=== PATIENT | female | born 1985 | race Caucasian/White ===

== ENCOUNTER 2023-05-31 22:31 | Inpatient (IN) | payer OTHER, SELFPAY ==
[2023-05-31 18:24] VITALS: BP 136/65
[2023-05-31 18:59] LABS: COVID-19 Antigen Negative (Negative)
[2023-05-31] MEDS: TYLENOL 500 MG PO (20:15)
[2023-05-31] MEDS: NSS 500 IV (20:15)
[2023-05-31 20:19] VITALS: BMI 26.8
[2023-05-31 20:36] LABS: Urine Albumin Negative (Neg - Trace); Urine Bilirubin Negative (Negative); Urine Character Clear (Clear); Urine Color Straw; Urine Glucose Negative (Negative); Urine Ketone Negative (Negative); Urine Leukocyte Negative (Negative); Urine Nitrite Negative (Negative); Urine Occult Blood Negative (Negative); Urine Urobilinogen Negative (Neg - 1+)
[2023-05-31 20:36] LABS: % Eosinophils 1.3 % (0-6); % Lymphocytes 94.9 % (20.5-51.1); % Monocytes 2.5 % (1.7-9.3); % Neutrophils 1.3 % (42.2-75.2); Absolute Lymphocytes 0.8 10^3/uL (1.2-3.4); Hemoglobin 8.3 g/dL (12.0-16.0); Mean Corp Hgb Conc. 36.1 g/dL (33.0-37.0); Mean Corpuscular Hgb 30.4 pg (27.0-31.0); Mean Corpuscular Volume 84.2 fL (81.0-99.0); Mean Platelet Volume 10.1 fL (7.4-10.4); Nucleated Red Blood Cells % 0 %; Platelet Count 104 10^3/uL (130-400); Red Blood Cell Count 2.73 10^6/uL (4.20-5.40); Red Cell Dist. Width 16.9 % (11.5-14.5)
[2023-05-31 20:44] LABS: Lactic Acid 0.8 mmol/L (0.7-2.0)
[2023-05-31 20:48] LABS: ALT (SGPT) 45 U/L (0-35); AST (SGOT) 42 U/L (14-36); Albumin 4.2 g/dl (3.5-5.0); Alkaline Phosphatase 68 U/L (38-126); Blood Urea Nitrogen 12 mg/dl (7-17); Calcium 9.1 mg/dl (8.4-10.2); Carbon Dioxide 25 mmol/L (22-30); Chloride 103 mmol/L (98-107); Estimated Creatinine Clearance 94 ml/min; Glucose 103 mg/dl (70-99); Potassium 3.8 mmol/L (3.5-5.1); Sodium 133 mmol/L (135-145); Total Protein 6.8 g/dl (6.3-8.2); eGFR > 60.00
[2023-05-31 21:00] LABS: White Blood Cell Count 0.8 10^3/uL (4.8-10.8)
[2023-05-31 21:11] VITALS: BP 107/61
--- NOTE | 2023-05-31 22:08 | HPS.HSE ---
Family Physician
-
Family Physician: Ashely Howard
Chief Complaint
-
fever
History of Present Illness
38-year-old female past medical history of stage III breast cancer on chemotherapy presenting with bodyaches for 1 week and fever of 101 today. She last received chemotherapy 1 week ago. She was previously on a different chemotherapy and last week
was her first dose of this new chemotherapy. During the chemotherapy session she developed anaphylaxis with nausea, mouth swelling.
She was neutropenic on Saturday with ANC of 1.1 and got Neulasta.
Today she developed fevers and chills and diffuse body pains described as bone pains. She denies runny nose. Denies sore throat, cough, shortness of breath, chest pain, nausea or vomiting, diarrhea, urinary symptoms.
Medical History
Past Medical History
Past Medical History: Reports Other (stage III breast cancer on chemotherapy)
Past Surgical History: Reports
Social History
Tobacco: Non-smoker
Alcohol: Occasional
Drug: None
Family History
Family History: Not pertinent
Allergies / Home Medications
Allergies reflects when Allergies were last updated in [facility].
Home Medications with original date entered in [facility]
Allergy/Medication List:
Allergies
Allergy/AdvReac Type Severity Reaction Status Date / Time
amoxicillin Allergy Hives Verified 05/31/23 18:31
cephalexin Allergy Hives Verified 05/31/23 18:31
Cephalosporins Allergy Unknown Verified 05/31/23 18:31
paclitaxel [From Taxol] Allergy Anaphylaxis Verified 05/31/23 18:35
Penicillins Allergy Hives Verified 05/31/23 18:31
prednisolone Allergy Hives Verified 05/31/23 18:31
tree fruit Allergy Tongue Uncoded 05/31/23 18:31
Swelling
Home Medications
sertraline 25 mg tablet 25 mg PO DAILY Neurological Condition 09/29/21
acetaminophen 325 mg tablet (Tylenol) 325 mg PO TIDPRN PRN mild pain 05/31/23
dexamethasone 4 mg tablet 4 mg PO UD 05/31/23
famotidine 20 mg tablet (Pepcid) 20 mg PO DAILYPRN PRN gerd 05/31/23
loratadine 10 mg tablet (Claritin) 10 mg PO DAILY 05/31/23
lorazepam 0.5 mg tablet 0.5 mg PO TIDPRN PRN anxiety 05/31/23
ondansetron HCl 8 mg tablet 8 mg PO [id number] PRN nasuea 05/31/23
prochlorperazine maleate 10 mg tablet 10 mg PO BIDPRN PRN nasuea 05/31/23
Review of Systems
-
History Source: Patient
A 12 point ROS was completed and negative except as noted: Yes
Constitutional: Reports See HPI
EENT: Reports No Symptoms
Respiratory: Reports No Symptoms
Cardiac: Reports No Symptoms
Abdomen/GI: Reports No Symptoms
: Reports No Symptoms
Musculoskeletal: Reports See HPI
Skin: Reports No Symptoms
Neurological: Reports No Symptoms
Endocrine: Reports No Symptoms
Hematologic/Lymphatic: Reports No Symptoms
Psych: Reports No Symptoms
Physical Exam
Vital Signs
Vital Signs
Temp Pulse Resp BP Pulse Ox
100.1 F 111 20 107/61 92
05/31/23 18:24 05/31/23 21:11 05/31/23 21:11 05/31/23 21:11 05/31/23 21:11
Physical Exam
General: Well Developed, Well Nourished and No Apparent Distress
HEENT: NormoCephalic, Moist mucous membranes and Atraumatic
Respiratory: Clear
Cardiac: S1/S2 and Regular Rhythm; No Murmur or Rub
GI: Soft, Non Tender, Non Distended and Normal Bowel Sounds; No Organomegaly
Rectal: Deferred by Provider
Musculoskeletal: No Clubbing, No Cyanosis and No Edema
Skin: No Rash
Neuro: Nonfocal/grossly intact
Laboratory Results
-
05/31/23 20:14
05/31/23 20:14
Laboratory Results
Lactic Acid 0.8 mmol/L (0.7-2.0) 05/31/23 20:15
Total Bilirubin 2.0 mg/dl (0.2-1.3) H 05/31/23 20:14
AST 42 U/L (14-36) H 05/31/23 20:14
ALT 45 U/L (0-35) H 05/31/23 20:14
Alkaline Phosphatase 68 U/L (38-126) 05/31/23 20:14
Data Reviewed
-
Lab Data: Labs Reviewed by me
Old Records: Reviewed
Impression/Plan
-
IMPRESSION:
PLAN:
# Neutropenic sepsis (fever, tachycardia, leukopenia) unclear source
-No obvious source of infection
-ANC of 0
-Urinalysis negative
-COVID negative, influenza negative
-Check blood cultures
-Check chest x-ray
-IV fluids
-Vancomycin/meropenem given allergies
# Pancytopenia likely secondary to chemotherapy
-ANC 0
-Hemoglobin of 8.3 from 11
-Platelet count of 104
-oncology consulted
History of breast cancer on chemotherapy
-Continue dexamethasone
-Continue antinausea medications
Anxiety/depression
-Continue sertraline, Ativan
Full code
DVT prophylaxis�SCDs
Regular diet
[2023-05-31] MEDS: MERREM 1000 MG IV (22:22)
--- NOTE | 2023-05-31 22:48 | ED.GENMED ---
History of Present Illness
General
Chief Complaint: Fever
Source: patient
Exam Limitations: none
Time Seen by Provider: 05/31/23 18:43
Nursing documentation reviewed up to this point in time: agreed with
Travel History
Have you had any contact with someone who has COVID-19?: No
Do you have any symptoms of coronavirus? Fever > 100 degrees, chills, cough, shortness of breath, sore throat, loss of taste or smell, muscle aches, or headache?: Yes
Symptoms:: fever
History of Present Illness
History of Present Illness:
38 y/o F with h/o breast CA stage III treated by cancer center, on new chemotherapy, 1 week ago 1st dose
on 05/27 her ANC was 1.1 and she was given neulasta
she was achy the rest of the week but then today spiked temp 101. 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 vazquez who recommended her coming in
she has no other symptoms - denies headache, neck pain, sore throat, nasal congestion, cough, vomiting, diarrhea, abdominal pain, cp, sob, rash.
her son is in school and had a fever/diarrhea this week.
Past History
Past History
ED Past Medical History: Cancer (breast)
ED Past Surgical History:
Social History
Tobacco: Non-smoker
Alcohol: None
Drug: None
Personal:
Living: with family
Employment: Not employed
Family History
Family History: Other (Noncontributory)
Review of Systems
Review of Systems
Allergies reviewed?: Yes
All Other Systems: Not applicable
Phy Exam
Physical Exam
Physical Exam:
GENERAL: Alert , in no apparent distress
EYE: pupils equal and reactive
NECK: Supple
ENT: b/l TM s clear, nonerythematous pharynx but no tonsillar hypertrophy or exudates
CARDIAC: low tachycardia, no obvious murmur, no edema\\
chest wall: port
LUNGS: Clear breath sounds bilaterally, no acute respiratory distress, no wheezes/rales/rhonchi, occ cough
ABDOMEN: Soft, without focal tenderness, no r/g, no cvat, normal bowel sounds
NEUROLOGICAL: Alert and oriented, no focal neuro deficits
SKIN: Warm and dry, skin intact. pale
MUSCULOSKELETAL: No edema, well perfused.
PSYCH: Normal and appropriate interaction.
Course
Orders/Labs/Results
Orders:
Orders
05/31/23 18:36
COVID-19 Antigen Urgent
Source: Nasal Swab
INF RAPID [Influenza A+B Rapid Molecular] Urgent
SHERWIN Source: Nasal Swab
Specimen Description:
05/31/23 19:19
0.9% Sodium Chloride 500 ml [Nss] 500 ml IV BOLUS
Acetaminophen [Tylenol] 500 mg PO NOW STA
05/31/23 20:14
Complete Blood Count/With Diff Urgent
Comprehensive Metabolic Panel Urgent
Blood Culture Urgent
SHERWIN Source: Blood/Venous
Specimen Description:
Comment: collect from SQ port
05/31/23 20:15
Lactic Acid Urgent
Urinalysis Reflex To Culture Urgent
Date Specimen was Collected: 05/31/23
Time Specimen was Collected: 19:27
05/31/23 20:26
Blood Culture Urgent
SHERWIN Source: Blood/Venous
Specimen Description:
05/31/23 21:38
CR Chest - 2 Views Urgent
Comment:
Reason For Exam: neutropenic fever
05/31/23 21:39
Meropenem [Merrem] 1,000 mg IV NOW STA
05/31/23 22:02
Admit/Transfer Patient As Directed
Co-Sign Provider:
Level of Care: Inpatient admission
Assign to:: Telemetry
Physician / Group: veldanda
Diagnosis: neutropenic sepsis
Reason for Telemetry: Arrhythmia
Date to Stop Telemetry: 06/03/23
Time to Stop Telemetry: 11:00
Reason for Hospitalization: neutropenic sepsis
Expected length of stay greater than two midnights?: Yes
ELOS- Estimated Length of Stay in days: 2
I certify the patient meets the requirements for IP care: Yes
05/31/23 22:03
Code Status As Directed
Resuscitation Status: Full Code
05/31/23 22:21
Sterile Water [Sterile Water For Injection] 20 ml .ROUTE .STK-MED
05/31/23 22:30
Vancomycin [Vancocin] 2,000 mg 0.9% Sodium Chloride 500 ml [Nss] 500 ml IV ONCE
06/03/23 11:00
DC Protocol for Telemetry ONCE
Abnormal Lab Results
05/31/23
20:14
WBC 0.8 L* 10^3/uL
(4.8-10.8)
RBC 2.73 L 10^6/uL
(4.20-5.40)
Hgb 8.3 L g/dL
(12.0-16.0)
Hct 23.0 L %
(37.0-47.0)
RDW 16.9 H %
(11.5-14.5)
Plt Count 104 L 10^3/uL
(130-400)
Absolute Neuts (auto) 0.0 L* 10^3/uL
(1.4-6.5)
Absolute Lymphs (auto) 0.8 L 10^3/uL
(1.2-3.4)
Absolute Monos (auto) 0.0 L 10^3/uL
(0.1-0.6)
Neutrophils % 1.3 L %
(42.2-75.2)
Lymphocytes % 94.9 H %
(20.5-51.1)
Sodium 133 L mmol/L
(135-145)
Glucose 103 H mg/dl
(70-99)
Total Bilirubin 2.0 H mg/dl
(0.2-1.3)
AST 42 H U/L
(14-36)
ALT 45 H U/L
(0-35)
05/31/23 20:14
05/31/23 20:14
Vital Signs
Initial and Last Documented VS:
Initial Vital Signs
Temp Pulse Resp BP Pulse Ox
100.1 F 120 20 136/65 97
05/31/23 18:24 05/31/23 18:24 05/31/23 18:24 05/31/23 18:24 05/31/23 18:24
Last Documented Vital Signs
Temp Pulse Resp BP Pulse Ox
100.1 F 115 22 107/61 98
05/31/23 18:24 05/31/23 22:31 05/31/23 22:31 05/31/23 21:11 05/31/23 22:31
MDM/Problems Addressed
Differential Diagnosis Includes:
neutropenic fever, viral syndrome, uti, penumonia, bacteremia, flu, covid
MDM/Problems Addressed:
38-year-old female with a history of stage III breast cancer currently receiving chemotherapy, new regimen started last week where she got an infusion through her port. The following 3 days later she had a ANC of 1.1 and was given a dose of
Neulasta. Patient also got a banana bag and says that during the week she has been feeling just generalized bodyaches, in particular lower back pain. Today she spiked a fever of 101 and treated it with Tylenol 500 mg and then called the [facility] and spoke with Dr. Vazquez and was instructed to come to the hospital. Patient says that other than feeling achy she has no specific complaints. Her son had a fever and diarrhea illness this week. They have 2 children and they both
are in daycare and are usually ill. Patient on arrival had a low-grade temperature of 100.1, was mildly tachycardic. She is overall pale in color but did not look severely dehydrated. Her heart and lungs were clear. She had no signs of infection
otherwise. Patient was tested for flu and COVID which were negative. Unfortunately her white count is 0.8 and her ANC is 0. I spoke with Dr. Lucero and he recommended empiric antibiotics. She was pancultured including blood culture from her port
and she will be admitted. She is allergic to penicillins and cephalosporins so I discussed the case with ED attending who recommended meropenem and vancomycin.
*Critical Care Note
Total Time (30-74mins, 75-104mins- exclusive of procedures): Not Applicable
ED Attending Note
-
Portions of this chart may have been created with voice recognition software.� Occasional wrong word or��sound alike� substitutions may have occurred due to the inherent limitations of voice recognition software.
Discharge Plan
Departure
Patient Disposition: Admit
Date of Disposition: 05/31/23
Time of Disposition: 21:38
Admit to: Med/Surg
Presentation/result/management discussed w/ accepting MD/DO: Hospitalist
Patient with high blood pressure during this ER visit?: No
Condition: Critical
Covid-19: Negative COVID-19
Discharge Problem:
Neutropenia with fever
Interventions
Interventions:
*Risk Screen - Suicide Last Done: 05/31/23 20:45
*General Assessment Last Done: 05/31/23 20:45
*Neglect/Abuse Screening Last Done: 05/31/23 20:45
ED- Fall Risk Assessment Last Done: 05/31/23 20:00
*ED COVID-19 Vaccine History Last Done: 05/31/23 18:24
ED- Neurological Assessment Last Done: 05/31/23 20:00
ED-Skin Assessment Last Done: 05/31/23 20:00
[2023-05-31] MEDS: VANCOCIN 540 MG IV (22:49)
[2023-05-31 23:57] VITALS: BP 123/54; BMI 27.3
[2023-06-01] MEDS: TYLENOL 325 MG PO (00:43)
[2023-06-01] MEDS: NSS 1000 IV (00:58)
--- NOTE | 2023-06-01 01:48 | PTCARENOTE ---
Pt arrived to 3W via stretcher from ED. Pt able to ambulate into room. AOx3. VSS. Assessment as documented. Pt oriented to unit. Call brunner within reach. Will continue ongoing plan of care.
[2023-06-01 03:30] VITALS: BP 102/53
[2023-06-01] MEDS: TYLENOL 650 MG PO ×2 (03:50→19:52)
[2023-06-01 04:57] LABS: % Lymphocytes 93.9 % (20.5-51.1); % Neutrophils 4.1 % (42.2-75.2); Absolute Lymphocytes 0.5 10^3/uL (1.2-3.4); Hemoglobin 7.4 g/dL (12.0-16.0); Mean Corp Hgb Conc. 35.7 g/dL (33.0-37.0); Mean Corpuscular Hgb 30.5 pg (27.0-31.0); Mean Corpuscular Volume 85.2 fL (81.0-99.0); Mean Platelet Volume 9.9 fL (7.4-10.4); Nucleated Red Blood Cells % 0 %; Platelet Count 90 10^3/uL (130-400); Red Blood Cell Count 2.43 10^6/uL (4.20-5.40); Red Cell Dist. Width 16.7 % (11.5-14.5)
[2023-06-01 05:08] LABS: Hematocrit 20.7 % (37.0-47.0); White Blood Cell Count 0.5 10^3/uL (4.8-10.8)
[2023-06-01 05:21] LABS: ALT (SGPT) 37 U/L (0-35); AST (SGOT) 29 U/L (14-36); Albumin 3.4 g/dl (3.5-5.0); Alkaline Phosphatase 63 U/L (38-126); Blood Urea Nitrogen 10 mg/dl (7-17); Calcium 8.4 mg/dl (8.4-10.2); Carbon Dioxide 22 mmol/L (22-30); Chloride 106 mmol/L (98-107); Estimated Creatinine Clearance 106 ml/min; Glucose 119 mg/dl (70-99); Potassium 3.9 mmol/L (3.5-5.1); Sodium 133 mmol/L (135-145); Total Bilirubin 2.1 mg/dl (0.2-1.3); Total Protein 5.7 g/dl (6.3-8.2); eGFR > 60.00
[2023-06-01] MEDS: STERILE WATER FOR INJECTION 20 ML IV ×3 (05:43→22:02)
[2023-06-01] MEDS: MERREM 1000 MG IV ×3 (05:43→22:02)
[2023-06-01 07:00] VITALS: BP 110/67
[2023-06-01] MEDS: ZOLOFT 25 MG PO (08:12)
[2023-06-01] MEDS: CLARITIN 10 MG PO (08:12)
--- NOTE | 2023-06-01 08:55 | PHA.VAN.IN ---
Assessment
- Assessment
Renal Function: Unknown baseline
Maximum Temperature: 100.6
Minimum Temperature: 98.6
Concomitant Antimicrobials: Meropenem
AUC Dosing Plan
- Dosing Variables
Dosing Weight (kg): 72.2
Dosing CrCl (ml/min): 106
Vd coefficient (L/kg): 0.7
- Empiric Dosing
Initial / Loading Dose: Vanc 2000mg 2/2 at 2249
Maintenance Regimen: Vanc 1000mg IV q12H
Estimated AUC (mcg*h/mL): 448
Estimated Peak (mcg*h/mL): 29.5
Estimated Trough (mcg/ml): 10.7
Estimated Half Life (H): 7.5
- Monitoring
No levels ordered at this time: Consider levels after 2/4 1800 dose.
Pharmacokinetics Vancomycin I
- -
Patient Age: 38
Patient Sex: Female
Vancomycin Day #: 1
Indication: Neutropenic Fever
Requesting Provider: Michael
Pertinent Antimicrobial Allergies:
PCN = hives; cephalexin = hives
Height / Weight:
Height 5 ft 4 in
Actual Weight 72.15 kg
IBW in k.7
Adjusted BW in k.7
Pertinent Past Medical History: Stage III breast cancer
- Vital Signs / Lab Results
Temp Pulse Resp BP Pulse Ox
98.6 F 96 18 110/67 98
06/01/23 07:00 06/01/23 07:00 06/01/23 07:00 06/01/23 07:00 06/01/23 07:00
Lab Results - Hematology
05/31/23 06/01/23
20:14 04:26
WBC 0.8 L* 0.5 L*
Lab Results - Chemistry
05/31/23 06/01/23
20:14 04:26
BUN 12 10
Creatinine 0.7 0.7
Estimated Creat Clear 94 106
Albumin 4.2 3.4 L
05/31/23
20:15
Lactic Acid 0.8
Lab Results - Urine
05/31/23
20:15
Urine Nitrite (Reflex) Negative
Leukocyte Esterase Rfl Negative
Microbiology Results
05/31/23 18:36 Influenza Types A & B (ANAND) - Final
Nasal Swab Negative for Influenza A & B, NAAT
Negative results must be combined with clinical observations
and patient history.
Nucleic Acid Amplification test (NAAT)performed on the
[employer] platform.
[2023-06-01] MEDS: VANCOCIN 200 IV ×2 (09:44→18:11)
[2023-06-01 10:29] LABS: Hematocrit 22.2 % (37.0-47.0); Hemoglobin 7.8 g/dL (12.0-16.0)
--- NOTE | 2023-06-01 10:45 | CON.ONC ---
Impression
Impression
Neutropenic fever likely with prolonged neutropenia
Triple negative breast carcinoma stage III
HTN
Plan
Plan
Broad-spectrum antibiotic support
Neutropenic precautions
Monitor CBC with differential post growth factor support
Anticipate ID insights
Will follow
Patient History
History of Present Illness
38-year-old female past medical history of stage III triple negative breast cancer Systemic therapy with carboplatin/Taxol/Adriamycin/Cytoxan in sequential order. She as treated last Saturday an ANC of 1100 and received growth factor support. She
called the office last evening with an episode of chills and temperature of 101. She Presented to the emergency room at my recommendation. Has now been admitted to the hospital with neutropenic fever ANC 0 on broad-spectrum antibiotics with
vancomycin/meropenum. � Denies sore throat, cough, shortness of breath, chest pain, nausea or vomiting, diarrhea Urinary symptoms.�
Past-Medical/Surgical History
Past Medical History
Stage III breast cancer on Neoadjuvant chemotherapy With good clinical response
Past Surgical History:
Social History
Tobacco: Non-smoker
Alcohol: Occasional
Drug: None
Family History
Family History: Not pertinent
Patient Medication
Medication Instructions Recorded Confirmed Last Taken Type
sertraline 25 mg tablet 25 mg PO DAILY Neurological 09/29/21 05/31/23 05/30/23 History
Condition
acetaminophen 325 mg tablet 325 mg PO TIDPRN PRN mild pain 05/31/23 05/31/23 05/31/23 History
(Tylenol)
dexamethasone 4 mg tablet 4 mg PO UD 05/31/23 05/31/23 Unknown History
famotidine 20 mg tablet (Pepcid) 20 mg PO DAILYPRN PRN gerd 05/31/23 05/31/23 05/31/23 History
loratadine 10 mg tablet (Claritin) 10 mg PO DAILY 05/31/23 05/31/23 05/30/23 History
lorazepam 0.5 mg tablet 0.5 mg PO TIDPRN PRN anxiety 05/31/23 05/31/23 Unknown History
ondansetron HCl 8 mg tablet 8 mg PO [id number] PRN nasuea 05/31/23 05/31/23 Unknown History
prochlorperazine maleate 10 mg 10 mg PO BIDPRN PRN nasuea 05/31/23 05/31/23 Unknown History
tablet
Active Medications
Generic Name Dose Route Start Last Admin
Trade Name Freq PRN Reason Stop Dose Admin
Acetaminophen 650 mg 06/01/23 03:38 06/01/23 03:50
Acetaminophen 325 Mg Tablet PO 06/29/23 03:36 650 mg
Q4HPRN PRN Administration
mild pain/arreguin/ TEMP>100.5
Famotidine 20 mg 05/31/23 23:43
Famotidine 20 Mg Tablet PO 06/28/23 23:42
DAILYPRN PRN
gerd
Sodium Chloride 1,000 mls @ 100 mls/hr 05/31/23 23:43 06/01/23 00:58
Nss IV 1,000 mls
.Q10H CHUCK Administration
Vancomycin HCl 1 gram in 200 mls @ 200 mls/hr 06/01/23 18:00
Vancocin IV
Q12H CHUCK
Protocol
Loratadine 10 mg 06/01/23 08:00 06/01/23 08:12
Loratadine 10 Mg Tablet PO 06/29/23 07:59 10 mg
DAILY CHUCK Administration
Lorazepam 0.5 mg 05/31/23 23:43
Lorazepam 0.5 Mg Tablet PO 06/28/23 23:42
TIDPRN PRN
anxiety
Meropenem 1,000 mg 06/01/23 06:00 06/01/23 05:43
Meropenem 1,000 Mg/20 Ml Vial IV 1,000 mg
Q8H CHUCK Administration
Ondansetron HCl 4 mg 05/31/23 23:43
Ondansetron 4 Mg/2 Ml Vial IV 06/28/23 23:42
Q6HPRN PRN
nausea and vomiting
Ondansetron HCl 8 mg 05/31/23 23:43
Ondansetron 4 Mg Tablet PO
[id number] PRN
nasuea
Prochlorperazine Maleate 10 mg 05/31/23 23:43
Prochlorperazine 10 Mg Tablet PO 06/28/23 23:42
BIDPRN PRN
nasuea
Sertraline HCl 25 mg 06/01/23 08:00 06/01/23 08:12
Sertraline 25 Mg Tablet PO 06/29/23 07:59 25 mg
DAILY CHUCK Administration
Sodium Chloride 0 flush 05/31/23 23:00
Sodium Chloride 0.9% (Flush) Syringe IV 06/28/23 22:59
PER PROTOCOL CHUCK
Sterile Water 20 ml 06/01/23 06:00 06/01/23 05:43
Sterile Water For Injection 20 Ml Vial IV 06/29/23 05:59 20 ml
Q8H CHUCK Administration
Review of Systems
-
Negative for 12 point review of systems other though than those symptoms mentioned in HPI.
Physical Exam
-
Physical Exam
General: Well Developed, Well Nourished and No Apparent Distress
HEENT: NormoCephalic, Moist mucous membranes and Atraumatic
Respiratory: Clear
Cardiac: S1/S2 and Regular Rhythm; No Murmur or Rub
GI: Soft, Non Tender, Non Distended and Normal Bowel Sounds; No Organomegaly
Musculoskeletal: No Clubbing, No Cyanosis and No Edema
Skin: No Rash
Neuro: Nonfocal/grossly intact
Labs
Lab Results
WBC 0.5 10^3/uL (4.8-10.8) L* 06/01/23 04:26
RBC 2.43 10^6/uL (4.20-5.40) L 06/01/23 04:26
Hgb 7.8 g/dL (12.0-16.0) L 06/01/23 10:14
Hct 22.2 % (37.0-47.0) L 06/01/23 10:14
MCV 85.2 fL (81.0-99.0) 06/01/23 04:26
MCH 30.5 pg (27.0-31.0) 06/01/23 04:
MCHC 35.7 g/dL (33.0-37.0) 06/01/23 04:
RDW 16.7 % (11.5-14.5) H 06/01/23 04:26
Plt Count 90 10^3/uL (130-400) L 06/01/23 04:26
MPV 9.9 fL (7.4-10.4) 06/01/23 04:26
Abs Immat Gran (auto) 0.0 10^3/uL (0-0.05) 05/31/23 20:14
Absolute Neuts (auto) 0.0 10^3/uL (1.4-6.5) L* 05/31/23 20:14
Absolute Lymphs (auto) 0.8 10^3/uL (1.2-3.4) L 05/31/23 20:14
Absolute Monos (auto) 0.0 10^3/uL (0.1-0.6) L 05/31/23 20:14
Absolute Eos (auto) 0.0 10^3/uL (0-0.7) 05/31/23 20:14
Absolute Basos (auto) 0.0 10^3/uL (0-0.2) 05/31/23 20:14
Immature Gran % 0.0 % (0-0.5) 05/31/23 20:14
Neutrophils % 1.3 % (42.2-75.2) L 05/31/23 20:14
Lymphocytes % 94.9 % (20.5-51.1) H 05/31/23 20:14
Monocytes % 2.5 % (1.7-9.3) 05/31/23 20:14
Eosinophils % 1.3 % (0-6) 05/31/23 20:14
Basophils % 0.0 % (0-2) 05/31/23 20:14
Creatinine 0.7 mg/dL (0.6-1.0) 06/01/23 04:26
Vital Signs
Vital Signs
Temp Pulse Resp BP Pulse Ox
98.6 F 96 18 110/67 98
06/01/23 07:00 06/01/23 07:00 06/01/23 07:00 06/01/23 07:00 06/01/23 07:00
[2023-06-01 11:00] VITALS: BP 110/70
[2023-06-01] MEDS: ZOFRAN 4 MG IV (11:05)
--- NOTE | 2023-06-01 11:28 | W.PN.HOSP.TC ---
Addendum entered and electronically signed by Bill Eisenberg MD 06/01/23 11:41:
No Decadron. Patient was only taking since she had a reaction
Original Note:
Today's Communication/Plan
-
Monitor vital signs and see plan
Continue with abx
ID to evaluate
Follow fever curve
Blood culture pending
Assessment / Plan
Assessment / Plan
General: Well Developed, Well Nourished and No Apparent Distress
HEENT: NormoCephalic, Moist mucous membranes and Atraumatic
Respiratory: Clear
Cardiac: S1/S2 and Regular Rhythm; No Murmur or Rub
GI: Soft, Non Tender, Non Distended and Normal Bowel Sounds; No Organomegaly
Rectal: Deferred by Provider
Musculoskeletal: No Clubbing, No Cyanosis and No Edema
Skin: No Rash
Neuro: Nonfocal/grossly intact
Neutropenic sepsis (fever, tachycardia, leukopenia) unclear source
-No obvious source of infection
-ANC of 0; received Neulasta on Saturday 05/27
-Urinalysis negative,CXR without PNA; covid,flu neg. Bcx pending
-DC further IVF
-Vancomycin/meropenem given allergies
# Pancytopenia likely secondary to chemotherapy
-ANC 0
-monitor hgb and plts
-oncology following; follows up with Dr. Jung outpatient
History of breast cancer on chemotherapy
-Continue dexamethasone
-Continue antinausea medications
Anxiety/depression
-Continue sertraline, Ativan
Full code
DVT prophylaxis�SCDs
Anticipated Discharge: 24 - 48 hours
Subjective/Interval History
-
Date of Service: June 01, 2023
feeling little better
Objective Data
-
Labs:
Laboratory Results
06/01/23 06/01/23
04:26 10:14
WBC 0.5 L*
Hgb 7.4 L 7.8 L
Hct 20.7 L* 22.2 L
Plt Count 90 L
Sodium 133 L
Potassium 3.9
Chloride 106
Carbon Dioxide 22
BUN 10
Creatinine 0.7
Glucose 119 H
Calcium 8.4
Total Bilirubin 2.1 H
AST 29
ALT 37 H
Alkaline Phosphatase 63
Vital Signs:
Vital Signs
Temp Pulse Resp BP Pulse Ox
99.3 F 107 16 110/70 99
06/01/23 11:00 06/01/23 11:00 06/01/23 11:00 06/01/23 11:00 06/01/23 11:00
I&O
05/31/23 06/01/23 06/02/23
06:59 06:59 06:59
Intake Total 480 / 480
Balance 480 / 480
[2023-06-01] MEDS: NSS IV (11:38)
--- NOTE | 2023-06-01 12:56 | CON.ID ---
Consultation
-
Date/Time Consultation Requested: June 01, 2023 0746
Date/Time Consultation Performed: June 01, 2023 1300
Requesting Provider: Dr. Bill Eisenberg
Performing Provider: Dr. Margaret Olivares
Reason for Consultation: Neutropenic fever
Chief Complaint / Past History
Chief Complaint
Fever
History of Present Illness
38-year-old female with stage III breast cancer diagnosed January 2023 and has been on chemo since February 2023. She last received her chemotherapy May 24 for which 2 of the medicines were new to her. She did have a reaction to emend with
nausea, mouth swelling which resolved with intervention. On May 27 she had Neulasta. For the past week she has been having bone pain, myalgias, and nausea. Yesterday she developed chills and fever. She took her temperature and it was
101. She was instructed to come to the ER. Her temperature was 100.6, ANC 0. She was started on vancomycin and meropenem. Patient denies headache, no sinus congestion. Has mild sore throat today. No cough or shortness of breath. No chest
pain. No vomiting or diarrhea. No abdominal pain. No dysuria. No flank pain. No rash. She lives with her and 2 young children. Her son recently had diarrheal illness from daycare. No travel history. Has 1 dog at home. She patterson
her plants only.
Past History
Additional Past Medical History:
Triple negative breast carcinoma stage III, dx 01/2023, on chemo
HTN
Right chest port
Additional Past Surgical History:
Allergy History:
amoxicillin Allergy (Verified 05/31/23 18:31)
Hives
cephalexin Allergy (Verified 05/31/23 18:31)
Hives
Cephalosporins Allergy (Verified 05/31/23 18:31)
Unknown
paclitaxel [From Taxol] Allergy (Verified 05/31/23 18:35)
Anaphylaxis
Penicillins Allergy (Verified 05/31/23 18:31)
Hives
prednisolone Allergy (Verified 05/31/23 18:31)
Hives
tree fruit Allergy (Uncoded 05/31/23 18:31)
Tongue Swelling
Medications Reviewed: Yes
Current Antibiotics:
Vancomycin
meropenem
Social History
Tobacco: Non-Smoker
Alcohol: Occasional
Drug: None
Personal:
Living: With Family
Family History
Family History: Not Pertinent
Review of Systems
Review of Systems
General: Fever and Chills; Negative Change in Appetite
HEENT: Negative Stiff Neck, Sinus Problems or Headache
Respiratory: Negative Dyspnea, Cough or Sputum Production
Gasteroenterology: Nausea; Negative Vomiting
Genital / Urological: Negative Dysuria, Stones or Flank Pain
Musculoskeletal: Negative Joint Pain or Joint Swelling
Skin / Hair / Nails: Negative Rash
Neurological: Negative Headache or Dizziness
All systems: All other systems were reviewed and were negative
Vital Signs
Temp Pulse Resp BP Pulse Ox
99.3 F 107 16 110/70 99
06/01/23 11:00 06/01/23 11:00 06/01/23 11:00 06/01/23 11:00 06/01/23 11:00
Selected Entries
05/31/23
23:57 06/01/23
03:30
Temp 100.6 F H 100.6 F H
Physical Exam
Physical Exam
Constitutional: No Acute Distress and Comfortable
Head: Other (No frontal or maxillary sinus tenderness)
Eyes: No Conjunctival Hemorrhage and Sclera Anicteric
Pharynx: Benign; Negative Erythema
Oral: No Thrush and No Ulcers
Cardiovascular: Regular Rate and S1/S2
Pulmonary: Clear
Gastrointestinal: Soft, Non Tender, Non Distended and Normal Bowel Sounds
Genito-Urinary: Negative CVA Tenderness
Extremities: Negative Edema
Musculoskeletal: Negative Spinal Tenderness
Skin: Negative Rash
Neurological: AO x 3; Negative Meningeal Signs
Lines: Port (no erythema)
Lab / Diagnostic Study Results
06/01/23 10:14
06/01/23 04:26
Abs Immat Gran (auto) 0.0 10^3/uL (0-0.05) 06/01/23 04:26
Absolute Neuts (auto) 0.0 10^3/uL (1.4-6.5) L* 06/01/23 04:26
Absolute Lymphs (auto) 0.5 10^3/uL (1.2-3.4) L 06/01/23 04:26
Absolute Monos (auto) 0.0 10^3/uL (0.1-0.6) L 06/01/23 04:26
Absolute Basos (auto) 0.0 10^3/uL (0-0.2) 06/01/23 04:26
Immature Gran % 0.0 % (0-0.5) 06/01/23 04:26
Neutrophils % 4.1 % (42.2-75.2) L 06/01/23 04:26
Lymphocytes % 93.9 % (20.5-51.1) H 06/01/23 04:26
Monocytes % 2.0 % (1.7-9.3) 06/01/23 04:26
Eosinophils % 0.0 % (0-6) 06/01/23 04:26
Basophils % 0.0 % (0-2) 06/01/23 04:26
Lactic Acid 0.8 mmol/L (0.7-2.0) 05/31/23 20:15
Microbiology Results
Micro:
05/31/23 20:26 Blood Culture - Pending
Blood/Venous
05/31/23 20:14 Blood Culture - Pending
Blood/Venous
05/31/23 18:36 Influenza Types A & B (ANAND) - Final
Nasal Swab Negative for Influenza A & B, NAAT
Negative results must be combined with clinical observations
and patient history.
Nucleic Acid Amplification test (NAAT)performed on the
[employer] ID NOW platform.
05/31/23 CXR: There is no parenchymal opacification or vascular congestion. Right chest port is seen with tip in the SVC. The cardiomediastinal silhouettes are within the limits of normal. There is no pneumothorax, pleural effusion or mediastinal
shift.
Assessment / Plan
# Neutropenic fever
# Stage III breast cancer on chemo last received 05/24 (different drug), Neulasta 05/27.
# Allergy to PCN, cephalosporins
- COVID/Flu neg
-UA neg
- CXR neg
- Await blood cx's.
-Continue Vanco/meropenem for now.
- Follow temps and ANC.
Care Review
Plan reviewed with: Physician (Dr. Eisenberg)
[2023-06-01 15:00] VITALS: BP 100/62
--- NOTE | 2023-06-01 15:58 | CM ---
Chart reviewed. Spoke with pt and her at bedside
Recently diagnosed with stage 3 breast cancer.
Undergoing chemo - last tx 05/24
Lives in 2 story home with and children
No DME
Denies VN/SNF
PCP - Dr Ashely Daugherty
Pharm- [facility], [address]
Plan- home to previous setting - needs tbd
[2023-06-01 19:41] VITALS: BP 111/67
[2023-06-01] MEDS: ANESTHETIC LOZENGE 1 LOZENGE PO (22:44)
[2023-06-01 23:49] VITALS: BP 100/60
[2023-06-02 03:26] VITALS: BP 104/61
[2023-06-02] MEDS: VANCOCIN 200 IV (06:16)
[2023-06-02] MEDS: MERREM 1000 MG IV ×3 (06:18→21:09)
[2023-06-02] MEDS: STERILE WATER FOR INJECTION 20 ML IV ×3 (06:18→21:10)
[2023-06-02 07:00] VITALS: BP 108/66
[2023-06-02 07:17] LABS: % Immature Granulocytes 1.6 % (0-0.5); % Lymphocytes 91.8 % (20.5-51.1); % Monocytes 3.3 % (1.7-9.3); % Neutrophils 3.3 % (42.2-75.2); Absolute Lymphocytes 0.6 10^3/uL (1.2-3.4); Hematocrit 22.1 % (37.0-47.0); Hemoglobin 8.1 g/dL (12.0-16.0); Mean Corp Hgb Conc. 36.7 g/dL (33.0-37.0); Mean Corpuscular Hgb 31.2 pg (27.0-31.0); Mean Platelet Volume 10.4 fL (7.4-10.4); Nucleated Red Blood Cells % 0 %; Platelet Count 78 10^3/uL (130-400); Red Cell Dist. Width 16.4 % (11.5-14.5)
[2023-06-02 07:24] LABS: White Blood Cell Count 0.6 10^3/uL (4.8-10.8)
[2023-06-02] MEDS: ZOLOFT 25 MG PO (07:40)
[2023-06-02] MEDS: CLARITIN 10 MG PO (07:40)
[2023-06-02 08:00] LABS: ALT (SGPT) 33 U/L (0-35); AST (SGOT) 21 U/L (14-36); Alkaline Phosphatase 76 U/L (38-126); Blood Urea Nitrogen 12 mg/dl (7-17); Calcium 9.1 mg/dl (8.4-10.2); Carbon Dioxide 25 mmol/L (22-30); Chloride 105 mmol/L (98-107); Estimated Creatinine Clearance 106 ml/min; Glucose 106 mg/dl (70-99); Potassium 3.8 mmol/L (3.5-5.1); Sodium 135 mmol/L (135-145); Total Bilirubin 1.5 mg/dl (0.2-1.3); Total Protein 6.7 g/dl (6.3-8.2); eGFR > 60.00
--- NOTE | 2023-06-02 10:00 | W.PN.ID1 ---
Date of Service
Date of Service: June 02, 2023
Today's Communication
Continue meropenem for now.
Assessment / Plan
# Neutropenic fever
# Stage III breast cancer on chemo last received 05/24 (different drug), Neulasta 05/27.
# Allergy to PCN, cephalosporins
-Fever trending down.
-ANC remains 0.
- COVID/Flu neg
-UA neg
- CXR neg
- blood cx's neg x 24h
-Discontinue Vanco
-Continue meropenem for now.
- Follow temps and ANC.
- When blood cx neg x 48h and afebrile x48h, can dc home without abx.
Chief Complaint
-: Fever
Subjective / Review of Systems
No symptoms. Feels well.
Vital Signs / Physical Exam
Vital Signs
Vital Signs
Temp Pulse Resp BP Pulse Ox
98.5 F 102 16 108/66 99
06/02/23 07:00 06/02/23 07:00 06/02/23 07:00 06/02/23 07:00 06/02/23 07:00
Selected Entries
06/01/23
15:00
Temp 100.5 F H
Physical Exam
Constitutional: No Acute Distress
Eyes: Sclera Anicteric
Cardiovascular: Regular Rate and S1/S2
Pulmonary: Clear
Gastrointestinal: Soft, Non Tender and Non Distended
Neurological: AO x 3
Lines: Port (no erythema)
Objective Data
Lab Data
Lab Results
06/02/23 06:43
06/02/23 06:43
Estimated Creat Clear 106 ml/min 06/02/23 06:43
Lactic Acid 0.8 mmol/L (0.7-2.0) 02/02/24 20:15
Total Bilirubin 1.5 mg/dl (0.2-1.3) H 06/02/23 06:43
AST 21 U/L (14-36) 06/02/23 06:43
ALT 33 U/L (0-35) 06/02/23 06:43
Alkaline Phosphatase 76 U/L (38-126) 06/02/23 06:43
Most recent labs reviewed.
Micro Results:
05/31/23 20:26 Blood Culture - Preliminary
Blood/Venous No Growth in 24 hours- Final report to follow
05/31/23 20:14 Blood Culture - Preliminary
Blood/Venous No Growth in 24 hours- Final report to follow
05/31/23 18:36 Influenza Types A & B (ANAND) - Final
Nasal Swab Negative for Influenza A & B, NAAT
Negative results must be combined with clinical observations
and patient history.
Nucleic Acid Amplification test (NAAT)performed on the
[employer] ID NOW platform.
05/31/23 CXR: There is no parenchymal opacification or vascular congestion. Right chest port is seen with tip in the SVC. The cardiomediastinal silhouettes are within the limits of normal. There is no pneumothorax, pleural effusion or mediastinal
shift.
Care Review
Plan reviewed with: Physician (Dr. Fina Eisenberg)
--- NOTE | 2023-06-02 10:25 | W.PN.ONC ---
Today's Communication / Plan
-
Broad-spectrum antibiotic support discontinued today
Observation
Neutropenic precautions
ANC 0
Possible discharge in a.m. on prophylactic antibiotic
Will follow
Impression
Impression
Neutropenic fever likely with prolonged neutropenia
Triple negative breast carcinoma stage III
HTN
Subjective/Objective
Subjective/Objective
Patient continues to be without symptoms. No recent fevers or chills.
Vital Signs:
Vital Signs
Temp Pulse Resp BP Pulse Ox
98.5 F 102 16 108/66 99
06/02/23 07:00 06/02/23 07:00 06/02/23 07:00 06/02/23 07:00 06/02/23 07:00
Physical exam: Unchanged no evidence of focal symptoms of infection
Lab Results:
Laboratory Data
WBC 0.6 10^3/uL (4.8-10.8) L* 06/02/23 06:43
Hgb 8.1 g/dL (12.0-16.0) L 06/02/23 06:43
Plt Count 78 10^3/uL (130-400) L 06/02/23 06:43
eGFR > 60.00 06/02/23 06:43
--- NOTE | 2023-06-02 10:50 | W.PN.HOSP.TC ---
Today's Communication/Plan
-
monitor vitals
see plan
Continue with antibiotics
continue to monitor blood culture
Follow fever curve
Per ID DC likely tomorrow if blood culture remains negative and patient is afebrile
Assessment / Plan
Assessment / Plan
General: Well Developed, Well Nourished and No Apparent Distress
HEENT: NormoCephalic, Moist mucous membranes and Atraumatic
Respiratory: Clear
Cardiac: S1/S2 and Regular Rhythm; No Murmur or Rub
GI: Soft, Non Tender, Non Distended and Normal Bowel Sounds
Rectal: Deferred by Provider
Musculoskeletal: No Edema
Neuro: Nonfocal/grossly intact
Neutropenic sepsis (fever, tachycardia, leukopenia) unclear source
-No obvious source of infection
-ANC of 0; received Neulasta on Saturday 05/27
-Urinalysis negative,CXR without PNA; covid,flu neg. Bcx pending
-DC further IVF
-cw meropenem; spoke with ID, hopeful dc tomorrow if bcx remain neg for 48hrs and she is fever free. ANC still low so she is high risk of infection.
Mild congestion
mucinex
# Pancytopenia likely secondary to chemotherapy
-ANC 0
-monitor hgb and plts
-oncology following; follows up with Dr. Jung outpatient
History of breast cancer on chemotherapy
-only used dexamethasone when she had allergic reaction
-Continue antinausea medications
Anxiety/depression
-Continue sertraline, Ativan
Full code
DVT prophylaxis�SCDs
Anticipated Discharge: Within 24 hours
Subjective/Interval History
-
Date of Service: June 02, 2023
has some congestion
Objective Data
-
Labs:
Laboratory Results
06/02/23
06:43
WBC 0.6 L*
Hgb 8.1 L
Hct 22.1 L
Plt Count 78 L
Sodium 135
Potassium 3.8
Chloride 105
Carbon Dioxide 25
BUN 12
Creatinine 0.7
Glucose 106 H
Calcium 9.1
Total Bilirubin 1.5 H
AST 21
ALT 33
Alkaline Phosphatase 76
Vital Signs:
Vital Signs
Temp Pulse Resp BP Pulse Ox
98.5 F 102 16 108/66 99
06/02/23 07:00 06/02/23 07:00 06/02/23 07:00 06/02/23 07:00 06/02/23 07:00
I&O
06/01/23 06/02/23 06/03/23
06:59 06:59 06:59
Intake Total 480 / 480 2200 / 2200
Balance 480 / 480 2200 / 2200
[2023-06-02] MEDS: MUCINEX 600 MG PO (12:14)
[2023-06-02 15:00] VITALS: BP 107/66
[2023-06-02] MEDS: TYLENOL 650 MG PO (21:17)
[2023-06-02] MEDS: ANESTHETIC LOZENGE 1 LOZENGE PO (21:17)
[2023-06-02] MEDS: MUCINEX PO (21:17)
[2023-06-02 23:39] VITALS: BP 98/60
[2023-06-02 23:45] VITALS: BP 108/69
[2023-06-03] MEDS: STERILE WATER FOR INJECTION 20 ML IV (05:30)
[2023-06-03] MEDS: MERREM 1000 MG IV (05:31)
[2023-06-03 07:00] VITALS: BP 113/70
[2023-06-03 07:21] LABS: % Basophils 1.1 % (0-2); % Eosinophils 1.1 % (0-6); % Lymphocytes 85.4 % (20.5-51.1); % Monocytes 6.7 % (1.7-9.3); % Neutrophils 5.7 % (42.2-75.2); Absolute Lymphocytes 0.8 10^3/uL (1.2-3.4); Absolute Monocytes 0.1 10^3/uL (0.1-0.6); Hematocrit 22.2 % (37.0-47.0); Hemoglobin 7.9 g/dL (12.0-16.0); Mean Corp Hgb Conc. 35.6 g/dL (33.0-37.0); Mean Corpuscular Hgb 30.6 pg (27.0-31.0); Mean Platelet Volume 10.6 fL (7.4-10.4); Nucleated Red Blood Cells % 0 %; Platelet Count 75 10^3/uL (130-400); Red Blood Cell Count 2.58 10^6/uL (4.20-5.40); Red Cell Dist. Width 16.2 % (11.5-14.5)
[2023-06-03 07:35] LABS: White Blood Cell Count 0.9 10^3/uL (4.8-10.8)
[2023-06-03 07:46] LABS: ALT (SGPT) 27 U/L (0-35); AST (SGOT) 20 U/L (14-36); Albumin 3.7 g/dl (3.5-5.0); Alkaline Phosphatase 71 U/L (38-126); Blood Urea Nitrogen 12 mg/dl (7-17); Calcium 9.2 mg/dl (8.4-10.2); Carbon Dioxide 27 mmol/L (22-30); Chloride 105 mmol/L (98-107); Estimated Creatinine Clearance 124 ml/min; Glucose 95 mg/dl (70-99); Sodium 137 mmol/L (135-145); Total Bilirubin 0.9 mg/dl (0.2-1.3); Total Protein 6.4 g/dl (6.3-8.2); eGFR > 60.00
[2023-06-03] MEDS: ZOLOFT 25 MG PO (08:15)
[2023-06-03] MEDS: CLARITIN 10 MG PO (08:15)
[2023-06-03] MEDS: MUCINEX PO ×2 (08:15→08:19)
[2023-06-03 08:43] LABS: Absolute Neutrophils 0.1 10^3/uL (1.4-6.5)
--- NOTE | 2023-06-03 09:11 | W.PN.ID1 ---
Date of Service
Date of Service: June 03, 2023
Today's Communication
Can dc home on prophylactic levofloxacin 750mg po daily x 7d, as per Hem/Onc request.
Assessment / Plan
# Neutropenic fever
# Stage III breast cancer on chemo last received 05/24 (different drug), Neulasta 05/27.
# Allergy to PCN, cephalosporins
-Fever resolved
-ANC 100
- COVID/Flu neg
-UA neg
- CXR neg
- blood cx's neg x 48h
- DC meropenem.
-Can dc home on prophylactic levofloxacin 750mg po daily x 7d, as per Hem/Onc request.
Discussed potential side effects including tendinitis and C. diff.
Chief Complaint
-: Fever
Subjective / Review of Systems
Doing well. No complaints.
Vital Signs / Physical Exam
Vital Signs
Vital Signs
Temp Pulse Resp BP Pulse Ox
98.2 F 94 18 113/70 98
06/03/23 07:00 06/03/23 07:00 06/03/23 07:00 06/03/23 07:00 06/03/23 07:00
Physical Exam
Constitutional: No Acute Distress
Eyes: No Conjunctival Hemorrhage and Sclera Anicteric
Pulmonary: Clear
Gastrointestinal: Soft, Non Tender and Non Distended
Neurological: AO x 3
Objective Data
Lab Data
Lab Results
06/03/23 07:10
06/03/23 07:10
Estimated Creat Clear 124 ml/min 06/03/23 07:10
Lactic Acid 0.8 mmol/L (0.7-2.0) 05/31/23 20:15
Total Bilirubin 0.9 mg/dl (0.2-1.3) 06/03/23 07:10
AST 20 U/L (14-36) 06/03/23 07:10
ALT 27 U/L (0-35) 06/03/23 07:10
Alkaline Phosphatase 71 U/L (38-126) 06/03/23 07:10
Most recent labs reviewed.
Micro Results:
05/31/23 20:14 Blood Culture - Preliminary
Blood/Venous No Growth in 48 hours- Final report to follow
05/31/23 20:26 Blood Culture - Preliminary
Blood/Venous No Growth in 48 hours- Final report to follow
05/31/23 18:36 Influenza Types A & B (ANAND) - Final
Nasal Swab Negative for Influenza A & B, NAAT
Negative results must be combined with clinical observations
and patient history.
Nucleic Acid Amplification test (NAAT)performed on the
[employer] platform.
05/31/23 CXR: There is no parenchymal opacification or vascular congestion. Right chest port is seen with tip in the SVC. The cardiomediastinal silhouettes are within the limits of normal. There is no pneumothorax, pleural effusion or mediastinal
shift.
Care Review
Plan reviewed with: Physician (Dr. Eisenberg/[place])
--- NOTE | 2023-06-03 11:12 | W.PN.HOSP.TC ---
Today's Communication/Plan
-
Monitor vitals
See plan
Discharge today on levofloxacin
Time of discharge 36 minutes
Assessment / Plan
Assessment / Plan
General: Well Developed, Well Nourished and No Apparent Distress
HEENT: NormoCephalic, Moist mucous membranes and Atraumatic
Respiratory: Clear
Cardiac: S1/S2 and Regular Rhythm; No Murmur or Rub
GI: Soft, Non Tender, Non Distended and Normal Bowel Sounds
Rectal: Deferred by Provider
Musculoskeletal: No Edema
Neuro: Nonfocal/grossly intact
Neutropenic sepsis (fever, tachycardia, leukopenia) unclear source
-No obvious source of infection
-ANC of 100; received Neulasta on Saturday 05/27
-Urinalysis negative,CXR without PNA; covid,flu neg. Bcx NGTD
-DC further IVF
-DC meropenem. Levofloxacin for 7 days per ID and hematology recs
Mild congestion
mucinex
# Pancytopenia likely secondary to chemotherapy
-ANC 100
-monitor hgb and plts
-oncology following; follows up with Dr. Jung outpatient
History of breast cancer on chemotherapy
-only used dexamethasone when she had allergic reaction
-Continue antinausea medications
Anxiety/depression
-Continue sertraline, Ativan
Full code
DVT prophylaxis�SCDs
Anticipated Discharge: Today
Subjective/Interval History
-
Date of Service: June 03, 2023
denies pain
Objective Data
-
Labs:
Laboratory Results
06/03/23
07:10
WBC 0.9 L*
Hgb 7.9 L
Hct 22.2 L
Plt Count 75 L
Sodium 137
Potassium 4.0
Chloride 105
Carbon Dioxide 27
BUN 12
Creatinine 0.6
Glucose 95
Calcium 9.2
Total Bilirubin 0.9
AST 20
ALT 27
Alkaline Phosphatase 71
Vital Signs:
Vital Signs
Temp Pulse Resp BP Pulse Ox
98.2 F 94 18 113/70 98
06/03/23 07:00 06/03/23 07:00 06/03/23 07:00 06/03/23 07:00 06/03/23 07:00
I&O
06/02/23 06/03/23 06/04/23
06:59 06:59 06:59
Intake Total 2200 / 2200 1620 / 1620
Balance 2200 / 2200 1620 / 1620
--- NOTE | 2023-06-03 11:16 | W.PN.ONC ---
Today's Communication / Plan
-
Neutropenic precautions: ANC 100
Blood cultures no growth x48 hours
CBC w/ diff weekly
Discharge home on prophylactic Levofloxacin 750mg daily x7 days
Follow up with [facility] is scheduled 06/13/23 @ 0900 with MANFR[facility]. Office notified of discharge
Impression
Impression
Neutropenic fever likely with prolonged neutropenia
Triple negative breast carcinoma stage III (Adriamycin/cytoxan/pembrolizumab)
Hypertension
Subjective/Objective
Subjective/Objective
patient is eager for dc. she denies fever, chills overnight. denies pain.
Vital Signs:
Vital Signs
Temp Pulse Resp BP Pulse Ox
98.2 F 94 18 113/70 98
06/03/23 07:00 06/03/23 07:00 06/03/23 07:00 06/03/23 07:00 06/03/23 07:00
physical exam:
aaox3, pallor
HRR, lungs clear, +bowel sounds
Lab Results:
Laboratory Data
WBC 0.9 10^3/uL (4.8-10.8) L* 06/03/23 07:10
Hgb 7.9 g/dL (12.0-16.0) L 06/03/23 07:10
Plt Count 75 10^3/uL (130-400) L 06/03/23 07:10
eGFR > 60.00 06/03/23 07:10
--- NOTE | 2023-06-03 11:17 | W.DCSUMMARY ---
Discharge Summary
Discharge Data
Date of Admission: 05/31/23
Date of Discharge: 06/03/23
-
Pending Results: No
Hospital Course
38-year-old female with history of breast cancer on chemotherapy, anxiety, depression came to the hospital with neutropenic fever. Blood cultures were drawn on admission which were negative prior to the discharge. Chest x-ray was also negative for
pneumonia. Urinalysis was also negative for urinary tract infection. Patient was seen by infectious disease and oncology throughout hospitalization. It was determined that patient symptoms could likely be from recent chemotherapy. Initially
patient was kept on IV antibiotics which were later transitioned to oral levofloxacin upon discharge. Patient neutropenia was slowly improving while she was hospitalized. On the day of discharge since her symptoms improved and she was afebrile she
was then discharged home with close follow-up with all her physicians outpatient.
Discharge Plan
-
Patient Disposition: Home (Routine Discharge)
Discharge Diagnosis/Procedures: Neutropenic fever
Mild congestion
Pancytopenia
Diet: As tolerated
Activity: As tolerated
Driving Restrictions: As prior to admission
Bathing Restrictions: None
Blood Work: Repeat CBC in 1 week with oncology
Referrals:
Ashely Howard DO [Family Provider] - in less than 1 week
Jolanta Jung DO [Active] -
Prescriptions:
New
guaifenesin 600 mg Tablet Extended Release 12hr
600 mg PO Q12 Qty: 14 0RF
levofloxacin 750 mg tablet
750 mg PO DAILY Qty: 7 0RF
Continued
sertraline 25 MG tablet
25 mg PO DAILY
acetaminophen [Tylenol] 325 mg Tablet
325 mg PO TIDPRN PRN (Reason: mild pain)
ondansetron HCl 8 mg Tablet
8 mg PO [id number] PRN (Reason: nasuea)
prochlorperazine maleate 10 mg Tablet
10 mg PO BIDPRN PRN (Reason: nausea )
famotidine [Pepcid] 20 mg Tablet
20 mg PO DAILYPRN PRN (Reason: gerd)
lorazepam 0.5 mg Tablet
0.5 mg PO TIDPRN PRN (Reason: anxiety)
dexamethasone 4 mg Tablet
4 mg PO UD
Rx Instructions:
4mg po bid on days 2 through 4 of chemo
loratadine [Claritin] 10 mg Tablet
10 mg PO DAILY
Discharge Orders:
Discharge Patient (As Directed); Ordered 06/03/23
Ordered By: Bill Eisenberg
Discharge Date and Time
Discharge Date/Time: 06/03/23 11:58
--- NOTE | 2023-06-03 11:26 | CM ---
Patient seen at bedside. Patient for discharge home with no needs per patient. CM will continue to follow for discharge planning needs.
Plan; home with no needs anticipated.
== END 2023-06-03 11:58 | disposition home or self-care (01) | DRG 810 ==
LOC: 3 WEST ACU 22:31
PROVIDERS: Nurse Practitioner Family; Physician Assistant; Student in an Organized Health Care Education/Training Program; ADMITTING PHYSICIAN Hospitalist; ATTENDING PHYSICIAN Internal Medicine; CONSULT PHYSICIAN Internal Medicine Hematology & Oncology; CONSULT PHYSICIAN Internal Medicine Infectious Disease; EMERGENCY PHYSICIAN Emergency Medicine; FAMILY PHYSICIAN Internal Medicine
DX: D70.1 Agranulocytosis secondary to cancer chemotherapy (principal); C50.919 Malignant neoplasm of unspecified site of unspecified female breast; R50.81 Fever presenting with conditions classified elsewhere; D61.810 Antineoplastic chemotherapy induced pancytopenia; F32.A Depression, unspecified; F41.9 Anxiety disorder, unspecified; I10 Essential (primary) hypertension; T45.1X5A Adverse effect of antineoplastic and immunosuppressive drugs, initial encounter
CPT/HCPCS: 71046; 80053; 81003; 83605; 85014; 85018; 85025; 86850; 86900; 86901; 87040; 87502; 87811; 96374; 96375; 99284; J2185

== ENCOUNTER → 2023-06-08 08:41 | Outpatient (REF) | payer OTHER, SELFPAY ==
[2023-06-08 09:16] LABS: Hematocrit 24.2 % (37.0-47.0); Hemoglobin 8.2 g/dL (12.0-16.0); Mean Corp Hgb Conc. 33.9 g/dL (33.0-37.0); Mean Corpuscular Hgb 31.5 pg (27.0-31.0); Mean Corpuscular Volume 93.1 fL (81.0-99.0); Mean Platelet Volume 10.6 fL (7.4-10.4); Platelet Count 303 10^3/uL (130-400); Red Cell Dist. Width 17.6 % (11.5-14.5)
[2023-06-08 09:57] LABS: Absolute Neutrophils -Man Diff 5.1 10^3/uL (1.4-6.5); Band Neutrophils 12 % (0-3); Lymphocytes 23 % (20-51); Metamyelocytes 7 % (-); Monocytes 14 % (2-9); Myelocytes 5 % (-); Normal RBC Morphology No; Nucleated Red Blood Cells 1 (-); Segmented Neutrophils 39 % (42-75)
[2023-06-08 09:58] LABS: Anisocytosis 1+; Hypochromasia 1+; Polychromasia 1+
[2023-06-08 09:59] LABS: Ovalocytes 1+; Total Cells Counted 100
[2023-06-08 10:02] LABS: Platelets Checked Yes
[2023-06-08 10:07] LABS: ALT (SGPT) 17 U/L (0-35); AST (SGOT) 28 U/L (14-36); Albumin 3.9 g/dl (3.5-5.0); Alkaline Phosphatase 83 U/L (38-126); Blood Urea Nitrogen 10 mg/dl (7-17); Calcium 9.7 mg/dl (8.4-10.2); Carbon Dioxide 31 mmol/L (22-30); Chloride 105 mmol/L (98-107); Glucose 74 mg/dl (70-99); Potassium 3.9 mmol/L (3.5-5.1); Sodium 139 mmol/L (135-145); Total Bilirubin 0.6 mg/dl (0.2-1.3); Total Protein 6.6 g/dl (6.3-8.2); eGFR > 60.00
== END ==
LOC: REG 08:41
PROVIDERS: ATTENDING PHYSICIAN Internal Medicine Hematology & Oncology; FAMILY PHYSICIAN Internal Medicine
DX: D50.9 Iron deficiency anemia, unspecified (principal); C50.912 Malignant neoplasm of unspecified site of left female breast
CPT/HCPCS: 36415; 80053; 85025

== ENCOUNTER → 2023-06-13 10:55 | Outpatient (REF) | payer OTHER, SELFPAY ==
[2023-06-13 10:30] LABS: Hematocrit 26.6 % (37.0-47.0); Hemoglobin 8.9 g/dL (12.0-16.0); Mean Corp Hgb Conc. 33.5 g/dL (33.0-37.0); Mean Corpuscular Hgb 31.6 pg (27.0-31.0); Mean Corpuscular Volume 94.3 fL (81.0-99.0); Mean Platelet Volume 9.7 fL (7.4-10.4); Platelet Count 387 10^3/uL (130-400); Red Blood Cell Count 2.82 10^6/uL (4.20-5.40); Red Cell Dist. Width 19.6 % (11.5-14.5); White Blood Cell Count 5.6 10^3/uL (4.8-10.8)
[2023-06-13 11:01] LABS: ALT (SGPT) 16 U/L (0-35); AST (SGOT) 23 U/L (14-36); Albumin 3.9 g/dl (3.5-5.0); Alkaline Phosphatase 68 U/L (38-126); Blood Urea Nitrogen 16 mg/dl (7-17); Calcium 9.9 mg/dl (8.4-10.2); Carbon Dioxide 28 mmol/L (22-30); Chloride 100 mmol/L (98-107); Glucose 81 mg/dl (70-99); Potassium 4.5 mmol/L (3.5-5.1); Sodium 135 mmol/L (135-145); Total Bilirubin 0.8 mg/dl (0.2-1.3); Total Protein 6.6 g/dl (6.3-8.2); eGFR > 60.00
[2023-06-13 12:11] LABS: Absolute Neutrophils -Man Diff 2.7 10^3/uL (1.4-6.5); Band Neutrophils 0 % (0-3); Segmented Neutrophils 49 % (42-75)
[2023-06-13 12:17] LABS: Lymphocytes 22 % (20-51); Metamyelocytes 2 % (-); Monocytes 26 % (2-9); Myelocytes 1 % (-)
[2023-06-13 12:18] LABS: Anisocytosis 1+; Normal RBC Morphology No; Nucleated Red Blood Cells 2 (-); Platelets Checked Yes
[2023-06-13 12:19] LABS: Hypochromasia 1+; Microcytosis 1+; Ovalocytes 1+; Poikilocytosis 1+; Total Cells Counted 100
== END ==
LOC: OIDL 10:55
PROVIDERS: ATTENDING PHYSICIAN Internal Medicine Hematology & Oncology
DX: D50.9 Iron deficiency anemia, unspecified (principal)
CPT/HCPCS: 80053; 85025

== ENCOUNTER → 2023-06-20 08:24 | Outpatient (REF) | payer OTHER, SELFPAY ==
[2023-06-20 09:20] LABS: Hematocrit 26.7 % (37.0-47.0); Mean Corp Hgb Conc. 33.7 g/dL (33.0-37.0); Mean Corpuscular Hgb 31.1 pg (27.0-31.0); Mean Corpuscular Volume 92.4 fL (81.0-99.0); Red Blood Cell Count 2.89 10^6/uL (4.20-5.40); Red Cell Dist. Width 18.6 % (11.5-14.5); White Blood Cell Count 15.4 10^3/uL (4.8-10.8)
[2023-06-20 09:54] LABS: Mean Platelet Volume 9.7 fL (7.4-10.4); Platelet Count 299 10^3/uL (130-400)
[2023-06-20 09:55] LABS: Absolute Neutrophils -Man Diff 14.3 10^3/uL (1.4-6.5); Anisocytosis 1+; Band Neutrophils 3 % (0-3); Hypochromasia 1+; Lymphocytes 7 % (20-51); Normal RBC Morphology No; Ovalocytes 1+; Platelets Checked Yes; Segmented Neutrophils 90 % (42-75)
[2023-06-20 09:56] LABS: Hypersegmented Neutrophil 2+; Total Cells Counted 100
[2023-06-20 10:24] LABS: ALT (SGPT) 19 U/L (0-35); AST (SGOT) 24 U/L (14-36); Alkaline Phosphatase 93 U/L (38-126); Blood Urea Nitrogen 14 mg/dl (7-17); Calcium 9.4 mg/dl (8.4-10.2); Carbon Dioxide 27 mmol/L (22-30); Chloride 103 mmol/L (98-107); Glucose 76 mg/dl (70-99); Potassium 4.3 mmol/L (3.5-5.1); Sodium 137 mmol/L (135-145); Total Protein 6.5 g/dl (6.3-8.2); eGFR > 60.00
== END ==
LOC: REG 08:24
PROVIDERS: ATTENDING PHYSICIAN Internal Medicine Hematology & Oncology; FAMILY PHYSICIAN Internal Medicine
DX: D50.9 Iron deficiency anemia, unspecified (principal); C50.912 Malignant neoplasm of unspecified site of left female breast
CPT/HCPCS: 36415; 80053; 85025

== ENCOUNTER → 2023-07-04 10:37 | Outpatient (REF) | payer OTHER, SELFPAY ==
[2023-07-04 10:26] LABS: % Basophils 0.6 % (0-2); % Eosinophils 0.5 % (0-6); % Immature Granulocytes 0.5 % (0-0.5); % Lymphocytes 17.2 % (20.5-51.1); % Neutrophils 62.2 % (42.2-75.2); Absolute Lymphocytes 1.1 10^3/uL (1.2-3.4); Absolute Monocytes 1.2 10^3/uL (0.1-0.6); Absolute Neutrophils 4.1 10^3/uL (1.4-6.5); Hematocrit 30.4 % (37.0-47.0); Hemoglobin 10.1 g/dL (12.0-16.0); Mean Corp Hgb Conc. 33.2 g/dL (33.0-37.0); Mean Corpuscular Hgb 31.4 pg (27.0-31.0); Mean Corpuscular Volume 94.4 fL (81.0-99.0); Mean Platelet Volume 9.8 fL (7.4-10.4); Platelet Count 413 10^3/uL (130-400); Red Blood Cell Count 3.22 10^6/uL (4.20-5.40); Red Cell Dist. Width 17.5 % (11.5-14.5); White Blood Cell Count 6.5 10^3/uL (4.8-10.8)
[2023-07-04 10:49] LABS: ALT (SGPT) 21 U/L (0-35); AST (SGOT) 26 U/L (14-36); Albumin 4.5 g/dl (3.5-5.0); Alkaline Phosphatase 99 U/L (38-126); Blood Urea Nitrogen 13 mg/dl (7-17); Carbon Dioxide 27 mmol/L (22-30); Chloride 103 mmol/L (98-107); Glucose 84 mg/dl (70-99); Potassium 4.2 mmol/L (3.5-5.1); Sodium 136 mmol/L (135-145); Total Bilirubin 1.1 mg/dl (0.2-1.3); Total Protein 7.4 g/dl (6.3-8.2); eGFR > 60.00
== END ==
LOC: OIDL 10:37
PROVIDERS: ATTENDING PHYSICIAN Internal Medicine Hematology & Oncology
DX: D50.9 Iron deficiency anemia, unspecified (principal)
CPT/HCPCS: 80053; 85025

== ENCOUNTER → 2023-07-13 08:27 | Outpatient (REF) | payer OTHER, SELFPAY ==
[2023-07-13 09:45] LABS: % Basophils 0.4 % (0-2); % Eosinophils 2.3 % (0-6); % Immature Granulocytes 1.2 % (0-0.5); % Lymphocytes 13.6 % (20.5-51.1); % Monocytes 14.9 % (1.7-9.3); % Neutrophils 67.6 % (42.2-75.2); Absolute Eosinophils 0.2 10^3/uL (0-0.7); Absolute Immature Granulocytes 0.1 10^3/uL (0-0.05); Absolute Lymphocytes 1.1 10^3/uL (1.2-3.4); Absolute Monocytes 1.3 10^3/uL (0.1-0.6); Absolute Neutrophils 5.7 10^3/uL (1.4-6.5); Hemoglobin 9.4 g/dL (12.0-16.0); Mean Corp Hgb Conc. 33.6 g/dL (33.0-37.0); Mean Corpuscular Hgb 31.3 pg (27.0-31.0); Mean Corpuscular Volume 93.3 fL (81.0-99.0); Mean Platelet Volume 10.8 fL (7.4-10.4); Nucleated Red Blood Cells % 0 %; Platelet Count 132 10^3/uL (130-400); Red Cell Dist. Width 16.3 % (11.5-14.5); White Blood Cell Count 8.4 10^3/uL (4.8-10.8)
[2023-07-13 10:28] LABS: ALT (SGPT) 13 U/L (0-35); AST (SGOT) 19 U/L (14-36); Albumin 4.2 g/dl (3.5-5.0); Alkaline Phosphatase 124 U/L (38-126); Blood Urea Nitrogen 16 mg/dl (7-17); Calcium 9.5 mg/dl (8.4-10.2); Carbon Dioxide 26 mmol/L (22-30); Chloride 104 mmol/L (98-107); Glucose 92 mg/dl (70-99); Potassium 4.4 mmol/L (3.5-5.1); Sodium 139 mmol/L (135-145); Total Bilirubin 0.5 mg/dl (0.2-1.3); Total Protein 6.9 g/dl (6.3-8.2); eGFR > 60.00
== END ==
LOC: REG 08:27
PROVIDERS: ATTENDING PHYSICIAN Internal Medicine Hematology & Oncology; FAMILY PHYSICIAN Internal Medicine
DX: D50.9 Iron deficiency anemia, unspecified (principal); C50.912 Malignant neoplasm of unspecified site of left female breast
CPT/HCPCS: 36415; 80053; 85025

== ENCOUNTER → 2023-07-24 09:40 | Outpatient (REF) | payer OTHER, SELFPAY ==
[2023-07-24 09:39] LABS: % Basophils 0.4 % (0-2); % Eosinophils 0.4 % (0-6); % Immature Granulocytes 0.4 % (0-0.5); % Lymphocytes 14.4 % (20.5-51.1); % Neutrophils 65.4 % (42.2-75.2); Absolute Lymphocytes 0.8 10^3/uL (1.2-3.4); Absolute Neutrophils 3.4 10^3/uL (1.4-6.5); Hematocrit 30.3 % (37.0-47.0); Hemoglobin 10.1 g/dL (12.0-16.0); Mean Corp Hgb Conc. 33.3 g/dL (33.0-37.0); Mean Corpuscular Hgb 31.1 pg (27.0-31.0); Mean Corpuscular Volume 93.2 fL (81.0-99.0); Mean Platelet Volume 9.7 fL (7.4-10.4); Platelet Count 229 10^3/uL (130-400); Red Blood Cell Count 3.25 10^6/uL (4.20-5.40); Red Cell Dist. Width 15.7 % (11.5-14.5); White Blood Cell Count 5.2 10^3/uL (4.8-10.8)
[2023-07-24 10:55] LABS: ALT (SGPT) 20 U/L (0-35); AST (SGOT) 26 U/L (14-36); Albumin 4.3 g/dl (3.5-5.0); Alkaline Phosphatase 90 U/L (38-126); Blood Urea Nitrogen 12 mg/dl (7-17); Carbon Dioxide 27 mmol/L (22-30); Chloride 102 mmol/L (98-107); Glucose 73 mg/dl (70-99); Potassium 4.2 mmol/L (3.5-5.1); Sodium 138 mmol/L (135-145); Total Bilirubin 1.2 mg/dl (0.2-1.3); eGFR > 60.00
== END ==
LOC: OIDL 09:40
PROVIDERS: ATTENDING PHYSICIAN Internal Medicine Hematology & Oncology
DX: D50.9 Iron deficiency anemia, unspecified (principal); C50.912 Malignant neoplasm of unspecified site of left female breast
CPT/HCPCS: 80053; 85025

== ENCOUNTER → 2023-07-29 15:57 | Outpatient (REF) | payer OTHER, SELFPAY ==
[2023-07-29 15:00] LABS: % Basophils 0.5 % (0-2); % Eosinophils 2.7 % (0-6); % Immature Granulocytes 0.2 % (0-0.5); % Lymphocytes 36.7 % (20.5-51.1); % Monocytes 14.4 % (1.7-9.3); % Neutrophils 45.5 % (42.2-75.2); Absolute Eosinophils 0.2 10^3/uL (0-0.7); Absolute Monocytes 0.8 10^3/uL (0.1-0.6); Absolute Neutrophils 2.5 10^3/uL (1.4-6.5); Hematocrit 31.6 % (37.0-47.0); Hemoglobin 10.3 g/dL (12.0-16.0); Mean Corp Hgb Conc. 32.6 g/dL (33.0-37.0); Mean Corpuscular Hgb 29.7 pg (27.0-31.0); Mean Corpuscular Volume 91.1 fL (81.0-99.0); Mean Platelet Volume 10.2 fL (7.4-10.4); Nucleated Red Blood Cells % 0 %; Platelet Count 250 10^3/uL (130-400); Red Blood Cell Count 3.47 10^6/uL (4.20-5.40); White Blood Cell Count 5.6 10^3/uL (4.8-10.8)
[2023-07-29 15:31] LABS: ALT (SGPT) 22 U/L (0-35); AST (SGOT) 29 U/L (14-36); Albumin 4.6 g/dl (3.5-5.0); Alkaline Phosphatase 106 U/L (38-126); Blood Urea Nitrogen 15 mg/dl (7-17); Calcium 10.1 mg/dl (8.4-10.2); Carbon Dioxide 27 mmol/L (22-30); Chloride 102 mmol/L (98-107); Glucose 95 mg/dl (70-99); Sodium 136 mmol/L (135-145); Total Bilirubin 1.2 mg/dl (0.2-1.3); Total Protein 7.5 g/dl (6.3-8.2); eGFR > 60.00
== END ==
LOC: OIDL 15:57
PROVIDERS: ATTENDING PHYSICIAN Internal Medicine Hematology & Oncology
DX: D50.9 Iron deficiency anemia, unspecified (principal)
CPT/HCPCS: 80053; 85025

== ENCOUNTER → 2023-08-05 20:08 | Outpatient (REF) | payer OTHER, SELFPAY | LOC: MRI 3T 20:08 | PROVIDERS: ATTENDING PHYSICIAN Surgery; FAMILY PHYSICIAN Internal Medicine | DX: C50.412 Malignant neoplasm of upper-outer quadrant of left female breast (principal); Z17.1 Estrogen receptor negative status [ER-] | CPT/HCPCS: 77049; A9585 ==

== ENCOUNTER → 2023-08-06 16:35 | Outpatient (REF) | payer OTHER, SELFPAY ==
[2023-08-06 17:37] LABS: % Eosinophils 13.1 % (0-6); % Lymphocytes 39.5 % (20.5-51.1); % Monocytes 9.8 % (1.7-9.3); % Neutrophils 35.6 % (42.2-75.2); Absolute Eosinophils 0.4 10^3/uL (0-0.7); Absolute Lymphocytes 1.2 10^3/uL (1.2-3.4); Absolute Monocytes 0.3 10^3/uL (0.1-0.6); Absolute Neutrophils 1.1 10^3/uL (1.4-6.5); Hematocrit 29.6 % (37.0-47.0); Hemoglobin 9.5 g/dL (12.0-16.0); Mean Corp Hgb Conc. 32.1 g/dL (33.0-37.0); Mean Corpuscular Hgb 29.8 pg (27.0-31.0); Mean Corpuscular Volume 92.8 fL (81.0-99.0); Mean Platelet Volume 10.3 fL (7.4-10.4); Nucleated Red Blood Cells % 0 %; Platelet Count 132 10^3/uL (130-400); Red Blood Cell Count 3.19 10^6/uL (4.20-5.40); Red Cell Dist. Width 14.4 % (11.5-14.5); White Blood Cell Count 3.1 10^3/uL (4.8-10.8)
[2023-08-06 18:03] LABS: ALT (SGPT) 35 U/L (0-35); AST (SGOT) 29 U/L (14-36); Albumin 4.4 g/dl (3.5-5.0); Alkaline Phosphatase 105 U/L (38-126); Blood Urea Nitrogen 12 mg/dl (7-17); Calcium 9.8 mg/dl (8.4-10.2); Carbon Dioxide 29 mmol/L (22-30); Chloride 100 mmol/L (98-107); Glucose 85 mg/dl (70-99); Sodium 137 mmol/L (135-145); eGFR > 60.00
== END ==
LOC: REG 16:35
PROVIDERS: ATTENDING PHYSICIAN Internal Medicine Hematology & Oncology; FAMILY PHYSICIAN Internal Medicine
DX: D50.9 Iron deficiency anemia, unspecified (principal); C50.912 Malignant neoplasm of unspecified site of left female breast
CPT/HCPCS: 36415; 80053; 85025

== ENCOUNTER → 2023-08-08 11:12 | Outpatient (REF) | payer OTHER, SELFPAY ==
[2023-08-08 13:05] LABS: Urine Albumin Negative (Neg - Trace); Urine Bilirubin Negative (Negative); Urine Character Clear (Clear); Urine Color Yellow; Urine Glucose Negative (Negative); Urine Ketone Negative (Negative); Urine Leukocyte Trace (Negative); Urine Nitrite Negative (Negative); Urine Occult Blood Negative (Negative); Urine Urobilinogen Negative (Neg - 1+)
[2023-08-08 13:44] LABS: Urine Bacteria Few (Negative); Urine Red Blood Cell 0-2 /HPF (0-2); Urine Squamous Cell 16-20 /LPF (Few)
== END ==
LOC: REG 11:12
PROVIDERS: ATTENDING PHYSICIAN Internal Medicine Hematology & Oncology; FAMILY PHYSICIAN Internal Medicine
DX: D50.9 Iron deficiency anemia, unspecified (principal); C50.912 Malignant neoplasm of unspecified site of left female breast
CPT/HCPCS: 81003; 81015; 87086

== ENCOUNTER → 2023-08-26 07:54 | Outpatient (REF) | payer OTHER, SELFPAY | LOC: WDC 07:54 | PROVIDERS: ATTENDING PHYSICIAN Surgery | DX: C50.412 Malignant neoplasm of upper-outer quadrant of left female breast (principal) | CPT/HCPCS: 19285; 38792; 76942; 77065; A4648; A9541 ==

== ENCOUNTER → 2023-08-27 07:30 | Outpatient (REF) | payer OTHER, SELFPAY | LOC: WDC 07:30 | PROVIDERS: ATTENDING PHYSICIAN Surgery | DX: C50.412 Malignant neoplasm of upper-outer quadrant of left female breast (principal) | CPT/HCPCS: 88305; 88307; 88332; 76098; 88331; 88342 ==

== ENCOUNTER → 2023-09-18 14:57 | Outpatient (REF) | payer OTHER, SELFPAY ==
[2023-09-18 09:02] LABS: Hematocrit 32.1 % (37.0-47.0); Hemoglobin 10.7 g/dL (12.0-16.0); Mean Corp Hgb Conc. 33.3 g/dL (33.0-37.0); Mean Corpuscular Hgb 28.4 pg (27.0-31.0); Mean Corpuscular Volume 85.1 fL (81.0-99.0); Mean Platelet Volume 9.3 fL (7.4-10.4); Platelet Count 234 10^3/uL (130-400); Red Blood Cell Count 3.77 10^6/uL (4.20-5.40); Red Cell Dist. Width 13.7 % (11.5-14.5); White Blood Cell Count 9.3 10^3/uL (4.8-10.8)
[2023-09-18 10:57] LABS: Nucleated Red Blood Cells % 0 %
[2023-09-18 10:59] LABS: Absolute Neutrophils -Man Diff 1.9 10^3/uL (1.4-6.5); Band Neutrophils 1 % (0-3); Eosinophils 56 % (0-6); Lymphocytes 15 % (20-51); Monocytes 8 % (2-9); Platelets Checked Yes; Segmented Neutrophils 20 % (42-75)
[2023-09-18 11:00] LABS: Normal RBC Morphology Yes; Total Cells Counted 100
== END ==
LOC: OIDL 14:57
PROVIDERS: ATTENDING PHYSICIAN Internal Medicine Hematology & Oncology
DX: D50.9 Iron deficiency anemia, unspecified (principal)
CPT/HCPCS: 85025

== ENCOUNTER → 2023-09-20 17:07 | Outpatient (REF) | payer OTHER, SELFPAY ==
[2023-09-20 17:39] LABS: HCG, Urine Qualitative Screen Negative
== END ==
LOC: RAD 17:07
PROVIDERS: ATTENDING PHYSICIAN Radiology Radiation Oncology; FAMILY PHYSICIAN Internal Medicine
DX: C50.919 Malignant neoplasm of unspecified site of unspecified female breast (principal)
CPT/HCPCS: 81025

== ENCOUNTER → 2023-09-26 08:05 | Outpatient (REF) | payer OTHER, SELFPAY | LOC: HWRCS 08:05 | PROVIDERS: ATTENDING PHYSICIAN Internal Medicine Hematology & Oncology; FAMILY PHYSICIAN Internal Medicine | DX: C50.912 Malignant neoplasm of unspecified site of left female breast (principal); D50.9 Iron deficiency anemia, unspecified | CPT/HCPCS: 93306 ==

== ENCOUNTER → 2023-10-07 13:11 | Outpatient (REF) | payer OTHER, SELFPAY ==
[2023-10-07 14:05] LABS: % Basophils 0.3 % (0-2); % Eosinophils 26.8 % (0-6); % Immature Granulocytes 0.2 % (0-0.5); % Lymphocytes 23.1 % (20.5-51.1); % Monocytes 8.1 % (1.7-9.3); % Neutrophils 41.5 % (42.2-75.2); Absolute Eosinophils 1.6 10^3/uL (0-0.7); Absolute Lymphocytes 1.4 10^3/uL (1.2-3.4); Absolute Monocytes 0.5 10^3/uL (0.1-0.6); Absolute Neutrophils 2.5 10^3/uL (1.4-6.5); Hematocrit 35.5 % (37.0-47.0); Hemoglobin 11.2 g/dL (12.0-16.0); Mean Corp Hgb Conc. 31.5 g/dL (33.0-37.0); Mean Corpuscular Hgb 26.1 pg (27.0-31.0); Mean Corpuscular Volume 82.8 fL (81.0-99.0); Mean Platelet Volume 10.1 fL (7.4-10.4); Nucleated Red Blood Cells % 0 %; Platelet Count 258 10^3/uL (130-400); Red Blood Cell Count 4.29 10^6/uL (4.20-5.40); Red Cell Dist. Width 14.3 % (11.5-14.5); White Blood Cell Count 5.9 10^3/uL (4.8-10.8)
[2023-10-07 14:35] LABS: ALT (SGPT) 29 U/L (0-35); AST (SGOT) 39 U/L (14-36); Albumin 4.4 g/dl (3.5-5.0); Alkaline Phosphatase 117 U/L (38-126); Blood Urea Nitrogen 14 mg/dl (7-17); Calcium 10.1 mg/dl (8.4-10.2); Carbon Dioxide 27 mmol/L (22-30); Chloride 102 mmol/L (98-107); Glucose 86 mg/dl (70-99); Potassium 4.6 mmol/L (3.5-5.1); Sodium 139 mmol/L (135-145); Total Bilirubin 0.7 mg/dl (0.2-1.3); Total Protein 7.5 g/dl (6.3-8.2); eGFR > 60.00
[2023-10-07 14:49] LABS: Free T4 1.04 ng/dl (0.78-2.19)
[2023-10-07 15:03] LABS: TSH 1.18 uIU/ml (0.47-4.68)
[2023-10-10 01:28] LABS: Total T3 (Sendout) 131 ng/dL (80-200)
== END ==
LOC: REG 13:11
PROVIDERS: ATTENDING PHYSICIAN Internal Medicine Hematology & Oncology; FAMILY PHYSICIAN Internal Medicine
DX: D50.9 Iron deficiency anemia, unspecified (principal); C50.912 Malignant neoplasm of unspecified site of left female breast
CPT/HCPCS: 36415; 80053; 84439; 84443; 84480; 85025

== ENCOUNTER 2023-10-24 16:59 | Outpatient (RCR) | payer OTHER, SELFPAY | END 2023-10-24 23:59 | disposition home or self-care (01) | LOC: RPT 16:59 | PROVIDERS: ATTENDING PHYSICIAN Radiology Radiation Oncology; FAMILY PHYSICIAN Internal Medicine | DX: R53.0 Neoplastic (malignant) related fatigue (principal); R29.3 Abnormal posture; L90.5 Scar conditions and fibrosis of skin; C50.912 Malignant neoplasm of unspecified site of left female breast; Z73.6 Limitation of activities due to disability | CPT/HCPCS: 97110; 97140; 97163; 97164; 97535 ==

== ENCOUNTER → 2023-10-29 06:55 | Outpatient (REF) | payer OTHER, SELFPAY ==
[2023-10-29 07:49] LABS: % Eosinophils 15.2 % (0-6); % Immature Granulocytes 0.3 % (0-0.5); % Lymphocytes 20.7 % (20.5-51.1); % Monocytes 14.2 % (1.7-9.3); % Neutrophils 48.6 % (42.2-75.2); Absolute Eosinophils 0.5 10^3/uL (0-0.7); Absolute Lymphocytes 0.6 10^3/uL (1.2-3.4); Absolute Monocytes 0.4 10^3/uL (0.1-0.6); Absolute Neutrophils 1.5 10^3/uL (1.4-6.5); Hematocrit 36.1 % (37.0-47.0); Hemoglobin 11.7 g/dL (12.0-16.0); Mean Corp Hgb Conc. 32.4 g/dL (33.0-37.0); Mean Corpuscular Hgb 25.5 pg (27.0-31.0); Mean Corpuscular Volume 78.6 fL (81.0-99.0); Mean Platelet Volume 10.4 fL (7.4-10.4); Nucleated Red Blood Cells % 0 %; Platelet Count 245 10^3/uL (130-400); Red Blood Cell Count 4.59 10^6/uL (4.20-5.40); Red Cell Dist. Width 15.5 % (11.5-14.5); White Blood Cell Count 3.1 10^3/uL (4.8-10.8)
[2023-10-29 09:09] LABS: ALT (SGPT) 20 U/L (0-35); AST (SGOT) 33 U/L (14-36); Albumin 4.6 g/dl (3.5-5.0); Alkaline Phosphatase 88 U/L (38-126); Blood Urea Nitrogen 18 mg/dl (7-17); Calcium 10.3 mg/dl (8.4-10.2); Chloride 105 mmol/L (98-107); Glucose 68 mg/dl (70-99); Potassium 4.3 mmol/L (3.5-5.1); Sodium 141 mmol/L (135-145); eGFR > 60.00
[2023-10-29 09:18] LABS: Carbon Dioxide 23 mmol/L (22-30); Total Protein 7.6 g/dl (6.3-8.2)
== END ==
LOC: REG 06:55
PROVIDERS: ATTENDING PHYSICIAN Internal Medicine Hematology & Oncology; FAMILY PHYSICIAN Internal Medicine
DX: D50.9 Iron deficiency anemia, unspecified (principal); C50.912 Malignant neoplasm of unspecified site of left female breast
CPT/HCPCS: 36415; 80053; 85025

== ENCOUNTER → 2023-11-18 09:12 | Outpatient (REF) | payer OTHER, SELFPAY ==
[2023-11-18 09:57] LABS: % Basophils 0.3 % (0-2); % Eosinophils 9.1 % (0-6); % Immature Granulocytes 0.2 % (0-0.5); % Lymphocytes 10.4 % (20.5-51.1); % Monocytes 12.4 % (1.7-9.3); % Neutrophils 67.6 % (42.2-75.2); Absolute Eosinophils 0.6 10^3/uL (0-0.7); Absolute Lymphocytes 0.6 10^3/uL (1.2-3.4); Absolute Monocytes 0.8 10^3/uL (0.1-0.6); Absolute Neutrophils 4.2 10^3/uL (1.4-6.5); Hematocrit 34.2 % (37.0-47.0); Hemoglobin 11.3 g/dL (12.0-16.0); Mean Corpuscular Hgb 26.3 pg (27.0-31.0); Mean Corpuscular Volume 79.7 fL (81.0-99.0); Mean Platelet Volume 9.6 fL (7.4-10.4); Nucleated Red Blood Cells % 0 %; Platelet Count 238 10^3/uL (130-400); Red Blood Cell Count 4.29 10^6/uL (4.20-5.40); Red Cell Dist. Width 16.4 % (11.5-14.5); White Blood Cell Count 6.2 10^3/uL (4.8-10.8)
[2023-11-18 10:21] LABS: ALT (SGPT) 19 U/L (0-35); AST (SGOT) 28 U/L (14-36); Albumin 4.4 g/dl (3.5-5.0); Alkaline Phosphatase 97 U/L (38-126); Blood Urea Nitrogen 13 mg/dl (7-17); Carbon Dioxide 29 mmol/L (22-30); Chloride 103 mmol/L (98-107); Glucose 84 mg/dl (70-99); Potassium 4.7 mmol/L (3.5-5.1); Sodium 139 mmol/L (135-145); Total Bilirubin 0.7 mg/dl (0.2-1.3); Total Protein 7.3 g/dl (6.3-8.2); eGFR > 60.00
[2023-11-18 10:33] LABS: Free T3 4.18 pg/ml (2.77-5.27); Free T4 0.92 ng/dl (0.78-2.19)
[2023-11-18 10:47] LABS: TSH 1.05 uIU/ml (0.47-4.68)
== END ==
LOC: REG 09:12
PROVIDERS: ATTENDING PHYSICIAN Internal Medicine Hematology & Oncology
DX: D50.9 Iron deficiency anemia, unspecified (principal); C50.912 Malignant neoplasm of unspecified site of left female breast
CPT/HCPCS: 36415; 80053; 84439; 84443; 84481; 85025

== ENCOUNTER → 2023-11-20 09:20 | Outpatient (REF) | payer OTHER, SELFPAY | LOC: RAD 09:20 | PROVIDERS: ATTENDING PHYSICIAN Internal Medicine Hematology & Oncology; FAMILY PHYSICIAN Internal Medicine | DX: I26.99 Other pulmonary embolism without acute cor pulmonale (principal); D50.9 Iron deficiency anemia, unspecified; C50.912 Malignant neoplasm of unspecified site of left female breast; R06.02 Shortness of breath | CPT/HCPCS: 71275; Q9967 ==

== ENCOUNTER 2023-11-27 08:00 | Outpatient (RCR) | payer OTHER, SELFPAY | END 2023-11-27 23:59 | disposition home or self-care (01) | LOC: RPT 08:00 | PROVIDERS: ATTENDING PHYSICIAN Radiology Radiation Oncology; FAMILY PHYSICIAN Internal Medicine | DX: C50.912 Malignant neoplasm of unspecified site of left female breast (principal); Z73.6 Limitation of activities due to disability; R53.0 Neoplastic (malignant) related fatigue; R29.3 Abnormal posture; L90.5 Scar conditions and fibrosis of skin | CPT/HCPCS: 97110; 97112; 97140; 97530; 97535 ==

== ENCOUNTER → 2023-11-27 09:05 | Outpatient (REF) | payer OTHER, SELFPAY ==
[2023-11-27 09:43] LABS: % Basophils 0.5 % (0-2); % Eosinophils 11.3 % (0-6); % Immature Granulocytes 0.3 % (0-0.5); % Lymphocytes 17.8 % (20.5-51.1); % Monocytes 12.9 % (1.7-9.3); % Neutrophils 57.2 % (42.2-75.2); Absolute Eosinophils 0.4 10^3/uL (0-0.7); Absolute Lymphocytes 0.7 10^3/uL (1.2-3.4); Absolute Monocytes 0.5 10^3/uL (0.1-0.6); Absolute Neutrophils 2.1 10^3/uL (1.4-6.5); Hematocrit 34.2 % (37.0-47.0); Hemoglobin 11.2 g/dL (12.0-16.0); Mean Corp Hgb Conc. 32.7 g/dL (33.0-37.0); Mean Corpuscular Hgb 26.1 pg (27.0-31.0); Mean Corpuscular Volume 79.7 fL (81.0-99.0); Nucleated Red Blood Cells % 0 %; Platelet Count 253 10^3/uL (130-400); Red Blood Cell Count 4.29 10^6/uL (4.20-5.40); Red Cell Dist. Width 17.1 % (11.5-14.5); White Blood Cell Count 3.7 10^3/uL (4.8-10.8)
[2023-11-27 10:35] LABS: ALT (SGPT) 16 U/L (0-35); AST (SGOT) 27 U/L (14-36); Albumin 4.5 g/dl (3.5-5.0); Alkaline Phosphatase 92 U/L (38-126); Blood Urea Nitrogen 13 mg/dl (7-17); Calcium 10.2 mg/dl (8.4-10.2); Carbon Dioxide 25 mmol/L (22-30); Chloride 103 mmol/L (98-107); Glucose 106 mg/dl (70-99); Potassium 4.5 mmol/L (3.5-5.1); Sodium 137 mmol/L (135-145); Total Bilirubin 0.9 mg/dl (0.2-1.3); Total Protein 7.3 g/dl (6.3-8.2); eGFR > 60.00
== END ==
LOC: REG 09:05
PROVIDERS: ATTENDING PHYSICIAN Internal Medicine Hematology & Oncology; FAMILY PHYSICIAN Internal Medicine
DX: D50.9 Iron deficiency anemia, unspecified (principal); C50.912 Malignant neoplasm of unspecified site of left female breast; R06.02 Shortness of breath
CPT/HCPCS: 36415; 80053; 85025

== ENCOUNTER → 2023-12-16 15:34 | Outpatient (REF) | payer OTHER, SELFPAY ==
[2023-12-16 17:07] LABS: % Basophils 0.3 % (0-2); % Eosinophils 8.9 % (0-6); % Immature Granulocytes 0.2 % (0-0.5); % Lymphocytes 17.1 % (20.5-51.1); % Monocytes 12.8 % (1.7-9.3); % Neutrophils 60.7 % (42.2-75.2); Absolute Eosinophils 0.5 10^3/uL (0-0.7); Absolute Monocytes 0.8 10^3/uL (0.1-0.6); Absolute Neutrophils 3.6 10^3/uL (1.4-6.5); Hematocrit 33.1 % (37.0-47.0); Hemoglobin 10.9 g/dL (12.0-16.0); Mean Corp Hgb Conc. 32.9 g/dL (33.0-37.0); Mean Corpuscular Hgb 25.3 pg (27.0-31.0); Nucleated Red Blood Cells % 0 %; Platelet Count 293 10^3/uL (130-400); Red Cell Dist. Width 17.7 % (11.5-14.5)
[2023-12-16 17:25] LABS: ALT (SGPT) 18 U/L (0-35); AST (SGOT) 35 U/L (14-36); Albumin 4.3 g/dl (3.5-5.0); Alkaline Phosphatase 94 U/L (38-126); Blood Urea Nitrogen 17 mg/dl (7-17); Calcium 9.7 mg/dl (8.4-10.2); Carbon Dioxide 27 mmol/L (22-30); Chloride 101 mmol/L (98-107); Glucose 82 mg/dl (70-99); Sodium 136 mmol/L (135-145); Total Bilirubin 0.8 mg/dl (0.2-1.3); Total Protein 7.1 g/dl (6.3-8.2); eGFR > 60.00
== END ==
LOC: REG 15:34
PROVIDERS: ATTENDING PHYSICIAN Internal Medicine Hematology & Oncology; FAMILY PHYSICIAN Internal Medicine
DX: D50.9 Iron deficiency anemia, unspecified (principal); C50.912 Malignant neoplasm of unspecified site of left female breast
CPT/HCPCS: 36415; 80053; 85025

== ENCOUNTER 2023-12-24 08:02 | Outpatient (RCR) | payer OTHER, SELFPAY | END 2023-12-24 23:59 | disposition home or self-care (01) | LOC: RPT 08:02 | PROVIDERS: ATTENDING PHYSICIAN Radiology Radiation Oncology; FAMILY PHYSICIAN Internal Medicine | DX: C50.919 Malignant neoplasm of unspecified site of unspecified female breast (principal); Z73.6 Limitation of activities due to disability; R53.0 Neoplastic (malignant) related fatigue; R29.3 Abnormal posture; L90.5 Scar conditions and fibrosis of skin | CPT/HCPCS: 97110; 97112; 97140; 97530; 97535 ==

== ENCOUNTER → 2024-01-06 09:17 | Outpatient (REF) | payer OTHER, SELFPAY ==
[2024-01-06 09:52] LABS: % Basophils 0.4 % (0-2); % Eosinophils 7.5 % (0-6); % Immature Granulocytes 0.2 % (0-0.5); % Lymphocytes 17.7 % (20.5-51.1); % Monocytes 12.4 % (1.7-9.3); % Neutrophils 61.8 % (42.2-75.2); Absolute Eosinophils 0.4 10^3/uL (0-0.7); Absolute Lymphocytes 0.8 10^3/uL (1.2-3.4); Absolute Monocytes 0.6 10^3/uL (0.1-0.6); Absolute Neutrophils 2.9 10^3/uL (1.4-6.5); Hematocrit 33.5 % (37.0-47.0); Mean Corp Hgb Conc. 32.8 g/dL (33.0-37.0); Mean Corpuscular Volume 82.3 fL (81.0-99.0); Mean Platelet Volume 9.6 fL (7.4-10.4); Nucleated Red Blood Cells % 0 %; Platelet Count 242 10^3/uL (130-400); Red Blood Cell Count 4.07 10^6/uL (4.20-5.40); Red Cell Dist. Width 19.2 % (11.5-14.5); White Blood Cell Count 4.7 10^3/uL (4.8-10.8)
[2024-01-06 10:21] LABS: ALT (SGPT) 12 U/L (0-35); AST (SGOT) 24 U/L (14-36); Alkaline Phosphatase 76 U/L (38-126); Blood Urea Nitrogen 10 mg/dl (7-17); Calcium 9.4 mg/dl (8.4-10.2); Carbon Dioxide 24 mmol/L (22-30); Chloride 106 mmol/L (98-107); Glucose 83 mg/dl (70-99); Potassium 4.4 mmol/L (3.5-5.1); Sodium 140 mmol/L (135-145); Total Bilirubin 0.8 mg/dl (0.2-1.3); Total Protein 6.6 g/dl (6.3-8.2); eGFR > 60.00
[2024-01-06 10:39] LABS: Free T4 0.81 ng/dl (0.78-2.19)
[2024-01-06 10:53] LABS: TSH 1.16 uIU/ml (0.47-4.68)
[2024-01-07 17:33] LABS: Total T3 (Sendout) 123 ng/dL (80-200)
== END ==
LOC: REG 09:17
PROVIDERS: ATTENDING PHYSICIAN Internal Medicine Hematology & Oncology
DX: D50.9 Iron deficiency anemia, unspecified (principal); C50.912 Malignant neoplasm of unspecified site of left female breast
CPT/HCPCS: 36415; 80053; 84439; 84443; 84480; 85025

== ENCOUNTER → 2024-01-25 09:34 | Outpatient (REF) | payer OTHER, SELFPAY | LOC: WDC 09:34 | PROVIDERS: ATTENDING PHYSICIAN Radiology Radiation Oncology | DX: Z12.31 Encounter for screening mammogram for malignant neoplasm of breast (principal) | CPT/HCPCS: 77063; 77067 ==

== ENCOUNTER 2024-01-27 06:55 | Outpatient (RCR) | payer OTHER, SELFPAY | END 2024-01-27 23:59 | disposition home or self-care (01) | LOC: RPT 06:55 | PROVIDERS: ATTENDING PHYSICIAN Radiology Radiation Oncology; FAMILY PHYSICIAN Internal Medicine | DX: I97.2 Postmastectomy lymphedema syndrome (principal); C50.912 Malignant neoplasm of unspecified site of left female breast; Z73.6 Limitation of activities due to disability; R53.0 Neoplastic (malignant) related fatigue; R29.3 Abnormal posture; L90.5 Scar conditions and fibrosis of skin | CPT/HCPCS: 97110; 97140; 97530; 97535 ==

== ENCOUNTER → 2024-01-27 09:01 | Outpatient (REF) | payer OTHER, SELFPAY ==
[2024-01-27 10:11] LABS: % Basophils 0.4 % (0-2); % Eosinophils 5.4 % (0-6); % Immature Granulocytes 0.2 % (0-0.5); % Lymphocytes 21.2 % (20.5-51.1); % Monocytes 14.7 % (1.7-9.3); % Neutrophils 58.1 % (42.2-75.2); Absolute Eosinophils 0.2 10^3/uL (0-0.7); Absolute Monocytes 0.7 10^3/uL (0.1-0.6); Absolute Neutrophils 2.6 10^3/uL (1.4-6.5); Hematocrit 36.5 % (37.0-47.0); Hemoglobin 11.8 g/dL (12.0-16.0); Mean Corp Hgb Conc. 32.3 g/dL (33.0-37.0); Mean Corpuscular Hgb 26.8 pg (27.0-31.0); Mean Corpuscular Volume 82.8 fL (81.0-99.0); Mean Platelet Volume 9.6 fL (7.4-10.4); Nucleated Red Blood Cells % 0 %; Platelet Count 255 10^3/uL (130-400); Red Blood Cell Count 4.41 10^6/uL (4.20-5.40); Red Cell Dist. Width 17.6 % (11.5-14.5); White Blood Cell Count 4.5 10^3/uL (4.8-10.8)
[2024-01-27 10:48] LABS: ALT (SGPT) 19 U/L (0-35); AST (SGOT) 29 U/L (14-36); Albumin 4.4 g/dl (3.5-5.0); Alkaline Phosphatase 76 U/L (38-126); Blood Urea Nitrogen 16 mg/dl (7-17); Calcium 9.8 mg/dl (8.4-10.2); Carbon Dioxide 25 mmol/L (22-30); Chloride 102 mmol/L (98-107); Glucose 82 mg/dl (70-99); Potassium 4.6 mmol/L (3.5-5.1); Sodium 137 mmol/L (135-145); Total Bilirubin 1.2 mg/dl (0.2-1.3); eGFR > 60.00
== END ==
LOC: REG 09:01
PROVIDERS: ATTENDING PHYSICIAN Internal Medicine Hematology & Oncology; FAMILY PHYSICIAN Internal Medicine
DX: D50.9 Iron deficiency anemia, unspecified (principal); C50.912 Malignant neoplasm of unspecified site of left female breast
CPT/HCPCS: 36415; 80053; 85025

== ENCOUNTER → 2024-01-29 09:29 | Outpatient (REF) | payer OTHER, SELFPAY | LOC: WDC 09:29 | PROVIDERS: ATTENDING PHYSICIAN Radiology Radiation Oncology | DX: R92.8 Other abnormal and inconclusive findings on diagnostic imaging of breast (principal) | CPT/HCPCS: 76642 ==

== ENCOUNTER → 2024-02-13 14:58 | Outpatient (REF) | payer OTHER, SELFPAY | LOC: WDC 14:58 | PROVIDERS: ATTENDING PHYSICIAN Radiology Radiation Oncology; FAMILY PHYSICIAN Internal Medicine | DX: R92.2 Inconclusive mammogram (principal); Z85.3 Personal history of malignant neoplasm of breast | CPT/HCPCS: 76641 ==

== ENCOUNTER → 2024-02-17 17:12 | Outpatient (REF) | payer OTHER, SELFPAY ==
[2024-02-17 18:22] LABS: % Basophils 0.7 % (0-2); % Eosinophils 3.9 % (0-6); % Immature Granulocytes 0.3 % (0-0.5); % Lymphocytes 24.1 % (20.5-51.1); % Monocytes 12.9 % (1.7-9.3); % Neutrophils 58.1 % (42.2-75.2); Absolute Eosinophils 0.2 10^3/uL (0-0.7); Absolute Lymphocytes 1.4 10^3/uL (1.2-3.4); Absolute Monocytes 0.8 10^3/uL (0.1-0.6); Absolute Neutrophils 3.5 10^3/uL (1.4-6.5); Hemoglobin 11.8 g/dL (12.0-16.0); Mean Corp Hgb Conc. 32.8 g/dL (33.0-37.0); Mean Corpuscular Volume 82.4 fL (81.0-99.0); Mean Platelet Volume 9.4 fL (7.4-10.4); Nucleated Red Blood Cells % 0 %; Platelet Count 271 10^3/uL (130-400); Red Blood Cell Count 4.37 10^6/uL (4.20-5.40); Red Cell Dist. Width 15.9 % (11.5-14.5)
[2024-02-17 18:49] LABS: ALT (SGPT) 19 U/L (0-35); AST (SGOT) 29 U/L (14-36); Albumin 4.7 g/dl (3.5-5.0); Alkaline Phosphatase 83 U/L (38-126); Blood Urea Nitrogen 19 mg/dl (7-17); Calcium 9.9 mg/dl (8.4-10.2); Carbon Dioxide 26 mmol/L (22-30); Chloride 102 mmol/L (98-107); Glucose 85 mg/dl (70-99); Potassium 4.1 mmol/L (3.5-5.1); Sodium 141 mmol/L (135-145); Total Bilirubin 0.9 mg/dl (0.2-1.3); Total Protein 7.6 g/dl (6.3-8.2); eGFR > 60.00
[2024-02-17 19:01] LABS: Free T4 0.84 ng/dl (0.78-2.19)
[2024-02-17 19:15] LABS: TSH 1.39 uIU/ml (0.47-4.68)
== END ==
LOC: REG 17:12
PROVIDERS: ATTENDING PHYSICIAN Internal Medicine Hematology & Oncology; FAMILY PHYSICIAN Internal Medicine
DX: D50.9 Iron deficiency anemia, unspecified (principal); C50.912 Malignant neoplasm of unspecified site of left female breast; R06.02 Shortness of breath
CPT/HCPCS: 36415; 80053; 84439; 84443; 84480; 85025

== ENCOUNTER 2024-02-24 06:46 | Outpatient (RCR) | payer OTHER, SELFPAY | END 2024-02-24 23:59 | disposition home or self-care (01) | LOC: RPT 06:46 | PROVIDERS: ATTENDING PHYSICIAN Radiology Radiation Oncology; FAMILY PHYSICIAN Internal Medicine | DX: I89.0 Lymphedema, not elsewhere classified (principal); C50.919 Malignant neoplasm of unspecified site of unspecified female breast; Z73.6 Limitation of activities due to disability | CPT/HCPCS: 97110; 97112; 97140; 97530; 97535 ==

== ENCOUNTER → 2024-03-05 07:26 | Outpatient (REF) | payer OTHER, SELFPAY | LOC: RCS 07:26 | PROVIDERS: ATTENDING PHYSICIAN Internal Medicine Hematology & Oncology; FAMILY PHYSICIAN Internal Medicine | DX: C50.912 Malignant neoplasm of unspecified site of left female breast (principal); R06.02 Shortness of breath; D50.9 Iron deficiency anemia, unspecified | CPT/HCPCS: 93306; 93356 ==

== ENCOUNTER → 2024-03-09 17:19 | Outpatient (REF) | payer OTHER, SELFPAY ==
[2024-03-09 17:55] LABS: % Basophils 0.6 % (0-2); % Eosinophils 3.4 % (0-6); % Immature Granulocytes 0.2 % (0-0.5); % Lymphocytes 24.8 % (20.5-51.1); % Monocytes 13.4 % (1.7-9.3); % Neutrophils 57.6 % (42.2-75.2); Absolute Eosinophils 0.2 10^3/uL (0-0.7); Absolute Lymphocytes 1.3 10^3/uL (1.2-3.4); Absolute Monocytes 0.7 10^3/uL (0.1-0.6); Absolute Neutrophils 3.1 10^3/uL (1.4-6.5); Hematocrit 34.8 % (37.0-47.0); Hemoglobin 11.8 g/dL (12.0-16.0); Mean Corp Hgb Conc. 33.9 g/dL (33.0-37.0); Mean Corpuscular Hgb 29.1 pg (27.0-31.0); Mean Corpuscular Volume 85.7 fL (81.0-99.0); Mean Platelet Volume 9.2 fL (7.4-10.4); Nucleated Red Blood Cells % 0 %; Platelet Count 238 10^3/uL (130-400); Red Blood Cell Count 4.06 10^6/uL (4.20-5.40); Red Cell Dist. Width 15.3 % (11.5-14.5); White Blood Cell Count 5.3 10^3/uL (4.8-10.8)
[2024-03-09 18:08] LABS: ALT (SGPT) 20 U/L (0-35); AST (SGOT) 55 U/L (14-36); Albumin 4.5 g/dl (3.5-5.0); Alkaline Phosphatase 69 U/L (38-126); Blood Urea Nitrogen 14 mg/dl (7-17); Calcium 9.7 mg/dl (8.4-10.2); Carbon Dioxide 25 mmol/L (22-30); Chloride 104 mmol/L (98-107); Glucose 93 mg/dl (70-99); Potassium 4.9 mmol/L (3.5-5.1); Sodium 140 mmol/L (135-145); Total Bilirubin 0.9 mg/dl (0.2-1.3); Total Protein 7.4 g/dl (6.3-8.2); eGFR > 60.00
== END ==
LOC: REG 17:19
PROVIDERS: ATTENDING PHYSICIAN Internal Medicine Hematology & Oncology; FAMILY PHYSICIAN Internal Medicine
DX: D50.9 Iron deficiency anemia, unspecified (principal); C50.912 Malignant neoplasm of unspecified site of left female breast
CPT/HCPCS: 36415; 80053; 85025

== ENCOUNTER 2024-03-17 08:00 | Outpatient (RCR) | payer OTHER, SELFPAY | END 2024-03-17 23:59 | disposition home or self-care (01) | LOC: RPT 08:00 | PROVIDERS: ATTENDING PHYSICIAN Radiology Radiation Oncology; FAMILY PHYSICIAN Internal Medicine | DX: I97.2 Postmastectomy lymphedema syndrome (principal); I89.0 Lymphedema, not elsewhere classified (principal); C50.919 Malignant neoplasm of unspecified site of unspecified female breast; Z73.6 Limitation of activities due to disability; R53.0 Neoplastic (malignant) related fatigue; R29.3 Abnormal posture; L90.5 Scar conditions and fibrosis of skin | CPT/HCPCS: 97110; 97530 ==

== ENCOUNTER → 2024-03-17 13:16 | Outpatient (REF) | payer OTHER, SELFPAY | LOC: RAD 13:16 | PROVIDERS: ATTENDING PHYSICIAN Nurse Practitioner Adult Health; FAMILY PHYSICIAN Internal Medicine | DX: D50.9 Iron deficiency anemia, unspecified (principal); C50.912 Malignant neoplasm of unspecified site of left female breast; R06.02 Shortness of breath | CPT/HCPCS: 71046 ==

== ENCOUNTER → 2024-03-30 16:25 | Outpatient (REF) | payer OTHER, SELFPAY ==
[2024-03-30 18:03] LABS: % Basophils 0.6 % (0-2); % Eosinophils 3.4 % (0-6); % Immature Granulocytes 0.2 % (0-0.5); % Lymphocytes 25.8 % (20.5-51.1); % Monocytes 13.4 % (1.7-9.3); % Neutrophils 56.6 % (42.2-75.2); Absolute Eosinophils 0.2 10^3/uL (0-0.7); Absolute Lymphocytes 1.6 10^3/uL (1.2-3.4); Absolute Monocytes 0.8 10^3/uL (0.1-0.6); Absolute Neutrophils 3.5 10^3/uL (1.4-6.5); Hematocrit 35.5 % (37.0-47.0); Hemoglobin 12.2 g/dL (12.0-16.0); Mean Corp Hgb Conc. 34.4 g/dL (33.0-37.0); Mean Corpuscular Volume 84.3 fL (81.0-99.0); Mean Platelet Volume 9.7 fL (7.4-10.4); Nucleated Red Blood Cells % 0 %; Platelet Count 251 10^3/uL (130-400); Red Blood Cell Count 4.21 10^6/uL (4.20-5.40); Red Cell Dist. Width 14.5 % (11.5-14.5); White Blood Cell Count 6.3 10^3/uL (4.8-10.8)
[2024-03-30 18:13] LABS: ALT (SGPT) 21 U/L (0-35); AST (SGOT) 26 U/L (14-36); Albumin 4.5 g/dl (3.5-5.0); Alkaline Phosphatase 70 U/L (38-126); Blood Urea Nitrogen 19 mg/dl (7-17); Calcium 9.9 mg/dl (8.4-10.2); Carbon Dioxide 23 mmol/L (22-30); Glucose 85 mg/dl (70-99); Total Bilirubin 0.7 mg/dl (0.2-1.3); Total Protein 7.4 g/dl (6.3-8.2); eGFR > 60.00
[2024-03-30 18:23] LABS: Free T4 0.84 ng/dl (0.78-2.19)
[2024-03-30 18:28] LABS: Chloride 103 mmol/L (98-107); Potassium 4.2 mmol/L (3.5-5.1); Sodium 139 mmol/L (135-145)
[2024-03-30 18:37] LABS: TSH 2.32 uIU/ml (0.47-4.68)
[2024-04-01 22:13] LABS: Total T3 (Sendout) 105 ng/dL (80-200)
== END ==
LOC: REG 16:25
PROVIDERS: ATTENDING PHYSICIAN Internal Medicine Hematology & Oncology; FAMILY PHYSICIAN Internal Medicine
DX: D50.9 Iron deficiency anemia, unspecified (principal); C50.912 Malignant neoplasm of unspecified site of left female breast
CPT/HCPCS: 36415; 80053; 84439; 84443; 84480; 85025

== ENCOUNTER 2024-04-14 06:41 | Outpatient (RCR) | payer OTHER, SELFPAY | END 2024-04-14 23:59 | disposition home or self-care (01) | LOC: RPT 06:41 | PROVIDERS: ATTENDING PHYSICIAN Radiology Radiation Oncology; FAMILY PHYSICIAN Internal Medicine | DX: I97.2 Postmastectomy lymphedema syndrome (principal); C50.919 Malignant neoplasm of unspecified site of unspecified female breast; Z73.6 Limitation of activities due to disability; R53.0 Neoplastic (malignant) related fatigue; R29.3 Abnormal posture; L90.5 Scar conditions and fibrosis of skin; I89.0 Lymphedema, not elsewhere classified | CPT/HCPCS: 97110; 97112; 97140 ==

== ENCOUNTER → 2024-05-26 17:19 | Outpatient (REF) | payer OTHER, SELFPAY | LOC: RAD 17:19 | PROVIDERS: ATTENDING PHYSICIAN Nurse Practitioner Adult Health; FAMILY PHYSICIAN Internal Medicine | DX: D50.9 Iron deficiency anemia, unspecified (principal); C50.912 Malignant neoplasm of unspecified site of left female breast; R06.02 Shortness of breath | CPT/HCPCS: 71111 ==

== ENCOUNTER 2024-05-28 17:53 | Outpatient (RCR) | payer OTHER, SELFPAY | END 2024-05-28 23:59 | disposition home or self-care (01) | LOC: RPT 17:53 | PROVIDERS: ATTENDING PHYSICIAN Radiology Radiation Oncology; FAMILY PHYSICIAN Internal Medicine | DX: I97.2 Postmastectomy lymphedema syndrome (principal); C50.919 Malignant neoplasm of unspecified site of unspecified female breast; C50.912 Malignant neoplasm of unspecified site of left female breast; Z73.6 Limitation of activities due to disability; R53.0 Neoplastic (malignant) related fatigue; R29.3 Abnormal posture; L90.5 Scar conditions and fibrosis of skin; I89.0 Lymphedema, not elsewhere classified | CPT/HCPCS: 97110; 97140; 97530; 97535 ==

== ENCOUNTER 2024-06-21 16:11 | Emergency (ER) | payer OTHER, SELFPAY ==
[2024-06-21 16:14] VITALS: BP 140/92
[2024-06-21 16:42] LABS: % Basophils 0.5 % (0-2); % Immature Granulocytes 0.4 % (0-0.5); % Lymphocytes 20.8 % (20.5-51.1); % Monocytes 10.5 % (1.7-9.3); % Neutrophils 57.8 % (42.2-75.2); Absolute Eosinophils 0.9 10^3/uL (0-0.7); Absolute Lymphocytes 1.8 10^3/uL (1.2-3.4); Absolute Monocytes 0.9 10^3/uL (0.1-0.6); Hematocrit 36.8 % (37.0-47.0); Hemoglobin 12.2 g/dL (12.0-16.0); Mean Corp Hgb Conc. 33.2 g/dL (33.0-37.0); Mean Corpuscular Hgb 28.3 pg (27.0-31.0); Mean Corpuscular Volume 85.4 fL (81.0-99.0); Mean Platelet Volume 9.3 fL (7.4-10.4); Nucleated Red Blood Cells % 0 %; Platelet Count 286 10^3/uL (130-400); Red Blood Cell Count 4.31 10^6/uL (4.20-5.40); Red Cell Dist. Width 14.3 % (11.5-14.5); White Blood Cell Count 8.6 10^3/uL (4.8-10.8)
[2024-06-21 16:55] LABS: ALT (SGPT) 21 U/L (0-35); AST (SGOT) 25 U/L (14-36); Albumin 4.5 g/dl (3.5-5.0); Alkaline Phosphatase 94 U/L (38-126); Blood Urea Nitrogen 24 mg/dl (7-17); Calcium 10.1 mg/dl (8.4-10.2); Carbon Dioxide 26 mmol/L (22-30); Chloride 101 mmol/L (98-107); Glucose 99 mg/dl (70-99); INR 0.85; PT 11.9 Sec (11.4-14.6); Potassium 4.1 mmol/L (3.5-5.1); Sodium 138 mmol/L (135-145); Total Bilirubin 0.9 mg/dl (0.2-1.3); Total Protein 7.9 g/dl (6.3-8.2); eGFR > 60.00
[2024-06-21 17:03] LABS: Troponin I < 0.012 ng/ml
--- NOTE | 2024-06-21 18:12 | ED.GENMED ---
History of Present Illness
General
Chief Complaint: Chest Pain
Source: patient
Exam Limitations: none
Time Seen by Provider: 06/21/24 18:04
Nursing documentation reviewed up to this point in time: agreed with
History of Present Illness
History of Present Illness:
39-year-old female presents emergency room complaining of chest pain that traveled up the throat to her left jaw, this began 30 minutes prior to arrival. It has resolved. This began while she was driving at about 3:30 PM. She denies any pain at
this time.
Past History
Past History
ED Past Medical History: Cancer (breast)
ED Past Surgical History:
Social History
Tobacco: Non-smoker
Alcohol: None
Drug: None
Personal:
Living: with family
Employment: Not employed
Family History
Family History: Other (Noncontributory)
Review of Systems
Review of Systems
Allergies reviewed?: Yes
All Other Systems: Not applicable
Constitutional: Reports no symptoms
EENT: Reports no symptoms
Respiratory: Reports no symptoms
Cardiac: Reports chest pain
ABD/GI: Reports no symptoms
: Reports no symptoms
Musculoskeletal: Reports no symptoms
Skin: Reports no symptoms
Neurological: Reports no symptoms
Endocrine: Reports no symptoms
Hematologic/Lymphatic: Reports no symptoms
Psychiatric: Reports no symptoms
Phy Exam
Physical Exam
Physical Exam:
Physical Exam
General: no apparent distress, not acutely ill
Neck: supple. no meningeal signs. normal posterior pharynx
Heart: s1/s2 regular rate and rhythm, no murmur. equal radial
pulses.
HEENT: Pupils equal round reactive to light, EOMI
Lungs: no acute respiratory distress. clear bilaterally, port right upper chest
Abdomen: normal bowel sounds. not tender. no CVAT
Neuro: alert and oriented. no focal neurological deficits cranial nerves II through XII intact
Skin: no rash
Psychiatric: well kept. interactive and cooperative
Extremities: no edema. no calf tenderness. negative homans. good distal pulses
Scores
Heart Score for Chest Pain Patients
STEMI patient?: No
History: Slightly or Non-Suspicious
ECG: Normal
Age: </= 45 years
Risk Factors: 1 or 2 Risk Factors
Troponin: </= Normal Limit
Heart Score for Chest Pain Patients: 1
Heart Score Risk: 2.5% MACE over next 6 weeks
Course
Orders/Labs/Results
Orders:
Orders
06/21/24 16:13
EKG [Electrocardiogram (*1)] Urgent
Reason for Study: Chest Pain
EKG- Treatment ONCE
CR Chest - 2 Views Urgent
Comment:
Reason For Exam: chest pain
06/21/24 16:25
Complete Blood Count/With Diff Urgent
Comprehensive Metabolic Panel Urgent
Lipase Urgent
Comment: ADDON
Prothrombin Time Urgent
Troponin I Urgent
06/21/24 18:23
Add On- LAB Urgent
Tests Added?: lipase
06/21/24 19:24
Troponin I Urgent
Abnormal Lab Results
06/21/24
16:25
Hct 36.8 L %
(37.0-47.0)
Absolute Monos (auto) 0.9 H 10^3/uL
(0.1-0.6)
Absolute Eos (auto) 0.9 H 10^3/uL
(0-0.7)
Monocytes % 10.5 H %
(1.7-9.3)
Eosinophils % 10.0 H %
(0-6)
BUN 24 H mg/dl
(7-17)
Creatinine 1.1 H mg/dL
(0.6-1.0)
06/21/24 16:25
06/21/24 16:25
Vital Signs
Initial and Last Documented VS:
Initial Vital Signs
Temp Pulse Resp BP Pulse Ox
98.3 F 83 18 140/92 99
06/21/24 16:14 06/21/24 16:14 06/21/24 16:14 06/21/24 16:14 06/21/24 16:14
Last Documented Vital Signs
Temp Pulse Resp BP Pulse Ox
98.3 F 81 21 109/69 98
06/21/24 16:14 06/21/24 20:15 06/21/24 20:15 06/21/24 20:00 06/21/24 20:15
MDM/Problems Addressed
Differential Diagnosis Includes:
Pneumonia, ACS, PE
MDM/Problems Addressed:
39-year-old female with left-sided chest pain, unclear etiology. Asymptomatic in ED. Doubt PE or ACS. Troponins negative. Incidental finding on chest x-ray of atelectasis versus pneumonitis, probably from patient's prior pneumonia. She denies
fever or cough. Will not give antibiotics at this time, but she will follow-up with her oncologist and primary care. Return precautions given.
Chronic conditions affecting care: Cancer (Breast)
*Radiology
Radiology exam reviewed: radiology read reviewed (Chest x-ray shows left-sided atelectasis versus pneumonia versus pneumonitis)
*Pulse Oximetry
Patient hypoxic: no
*EKG
Interpreted by ED Provider?: Yes
EKG Intrepretation Date: 06/21/24
EKG Intrepretation Time: 16:19
Interpretation: normal
Comparison EKG: no comparison EKG present
Heart Rate: 75
Rate: normal
Rhythm: sinus
Lane: normal axis
Interval: normal interval
QRS Pattern: normal QRS
Ischemia: no ischemia
*[employer] Interpretation
Rate: normal
Interpretation: normal
Heart Rate: 80
Rhythm: sinus
*Critical Care Note
Total Time (30-74mins, 75-104mins- exclusive of procedures): Not Applicable
Data Reviewed
Further Testing Considered But Not Given:
CT chest not indicated
Patient Management
Social determinants of health affecting care: Living situation and Strong social support
Discussion with other providers: Radiologist
Escalation/DeEscalation of care consider admission/obs:
Admit not indicated
ED Attending Note
-
Portions of this chart may have been created with voice recognition software.� Occasional wrong word or��sound alike� substitutions may have occurred due to the inherent limitations of voice recognition software.
Discharge Plan
Departure
Patient Disposition: Home (Routine Discharge)
Date of Disposition: 06/21/24
Time of Disposition: 20:23
Patient with high blood pressure during this ER visit?: Yes
Condition: Good
Discharge Problem:
Chest pain
Instructions: Chest Pain PCP Follow Up, BLOOD PRESSURE
Prescriptions:
No Action
sertraline 25 MG tablet
25 mg PO DAILY
acetaminophen [Tylenol] 325 mg Tablet
325 mg PO TIDPRN PRN (Reason: mild pain)
ondansetron HCl 8 mg Tablet
8 mg PO [id number] PRN (Reason: nasuea)
prochlorperazine maleate 10 mg Tablet
10 mg PO BIDPRN PRN (Reason: nausea )
famotidine [Pepcid] 20 mg Tablet
20 mg PO DAILYPRN PRN (Reason: gerd)
lorazepam 0.5 mg Tablet
0.5 mg PO TIDPRN PRN (Reason: anxiety)
dexamethasone 4 mg Tablet
4 mg PO UD
Rx Instructions:
4mg po bid on days 2 through 4 of chemo
loratadine [Claritin] 10 mg Tablet
10 mg PO DAILY
guaifenesin 600 mg Tablet Extended Release 12hr
600 mg PO Q12 Qty: 14 0RF
levofloxacin 750 mg tablet
750 mg PO DAILY Qty: 7 0RF
Referrals:
Ashely Howard, [Family Provider] - Call in 1-3 days for appt
Interventions
Interventions:
*Risk Screen - Suicide Last Done: 06/21/24 16:14
*General Assessment Last Done: 06/21/24 16:14
*Neglect/Abuse Screening Last Done: 06/21/24 16:14
ED- Fall Risk Assessment Last Done: 06/21/24 18:21
*ED COVID-19 Vaccine History Last Done: 06/21/24 16:14
ED- Cardiac Assessment Last Done: 06/21/24 18:19
Discharge Date and Time
Print Language: RUSSIAN
[2024-06-21 18:18] VITALS: BP 123/74
[2024-06-21 19:00] VITALS: BP 110/64
[2024-06-21 19:06] LABS: Lipase 152 U/L (23-300)
[2024-06-21 19:55] LABS: Troponin I < 0.012 ng/ml
[2024-06-21 20:00] VITALS: BP 109/69
== END 2024-06-21 20:48 | disposition home or self-care (01) ==
LOC: EMR 16:11
PROVIDERS: Emergency Medicine; EMERGENCY PHYSICIAN Emergency Medicine; FAMILY PHYSICIAN Internal Medicine
DX: R07.89 Other chest pain (principal); C50.912 Malignant neoplasm of unspecified site of left female breast; R91.8 Other nonspecific abnormal finding of lung field
CPT/HCPCS: 99285; 71046; 80053; 83690; 84484; 85025; 85610; 93005

== ENCOUNTER → 2024-07-07 12:20 | Outpatient (REF) | payer OTHER, SELFPAY ==
[2024-07-07 12:37] VITALS: BP 119/75; BP_SYST 80
[2024-07-07 13:35] VITALS: BP 113/77; BP_SYST 78
== END ==
LOC: RADI 12:20
PROVIDERS: ATTENDING PHYSICIAN Internal Medicine Hematology & Oncology; FAMILY PHYSICIAN Internal Medicine
DX: Z45.2 Encounter for adjustment and management of vascular access device (principal); C50.912 Malignant neoplasm of unspecified site of left female breast
CPT/HCPCS: 36590; 77001

== ENCOUNTER → 2024-08-17 08:40 | Outpatient (REF) | payer OTHER, SELFPAY ==
--- NOTE | 2024-08-17 09:15 | W.PN.UPDATE ---
Update Note
Progress Note Update
39yo female with h/o breast cancer had her port removed 07/07/24. She states she can see a suture at the end of the incision and she had some purulent drainage from the site. She denies tenderness or fever
On exam there is a visible vicryl suture over the lateral portion of the incision. There is some mild erythema at that end of the incision but no purulent drainage at this time. The suture was removed and bandaid was applied
== END ==
LOC: RADI 08:40
PROVIDERS: ATTENDING PHYSICIAN Radiology Vascular & Interventional Radiology; REFERRING PHYSICIAN Internal Medicine Hematology & Oncology
DX: Z48.817 Encounter for surgical aftercare following surgery on the skin and subcutaneous tissue (principal)

== ENCOUNTER → 2024-08-21 08:05 | Outpatient (REF) | payer OTHER, SELFPAY | LOC: MRI 3T 08:05 | PROVIDERS: ATTENDING PHYSICIAN Internal Medicine Hematology & Oncology; FAMILY PHYSICIAN Internal Medicine | DX: C50.912 Malignant neoplasm of unspecified site of left female breast (principal); D50.9 Iron deficiency anemia, unspecified; R06.02 Shortness of breath | CPT/HCPCS: 77049; A9585 ==

== ENCOUNTER → 2024-08-24 11:52 | Outpatient (REF) | payer OTHER, SELFPAY ==
[2024-08-24 13:53] LABS: APTT 24.7 Sec (23.4-35.0); INR 0.88; PT 12.2 Sec (11.4-14.6)
[2024-08-24 14:17] LABS: Beta HCG Quantitative < 2.39 mIU/ml
[2024-08-24 19:15] LABS: Hepatitis B Surface Antigen Negative (Negative)
[2024-08-24 19:33] LABS: Hepatitis B Core Ab, Total Negative (Negative); Hepatitis C Antibody Negative (Negative)
[2024-08-24 20:28] LABS: Hepatitis B Surface Antibody Positive
== END ==
LOC: REG 11:52
PROVIDERS: ATTENDING PHYSICIAN Physician Assistant Medical; FAMILY PHYSICIAN Internal Medicine
DX: D49.9 Neoplasm of unspecified behavior of unspecified site (principal)
CPT/HCPCS: 36415; 84702; 85610; 85730; 86704; 86706; 86803; 87340

== ENCOUNTER → 2024-08-25 15:25 | Outpatient (REF) | payer OTHER, SELFPAY | LOC: WDC 15:25 | PROVIDERS: ATTENDING PHYSICIAN Internal Medicine Hematology & Oncology | DX: R92.8 Other abnormal and inconclusive findings on diagnostic imaging of breast (principal) | CPT/HCPCS: 76642 ==

== ENCOUNTER → 2024-09-23 10:34 | Outpatient (REF) | payer OTHER, SELFPAY | LOC: PAVMRI 10:34 | PROVIDERS: ATTENDING PHYSICIAN Internal Medicine Hematology & Oncology; FAMILY PHYSICIAN Internal Medicine | DX: D50.9 Iron deficiency anemia, unspecified (principal); C50.912 Malignant neoplasm of unspecified site of left female breast; R06.02 Shortness of breath | CPT/HCPCS: 19085; A9585 ==

== ENCOUNTER → 2025-03-03 19:15 | Outpatient (REF) | payer OTHER, SELFPAY | LOC: MRI 3T 19:15 | PROVIDERS: ATTENDING PHYSICIAN Internal Medicine Hematology & Oncology; FAMILY PHYSICIAN Internal Medicine | DX: D50.9 Iron deficiency anemia, unspecified (principal); C50.912 Malignant neoplasm of unspecified site of left female breast; R06.02 Shortness of breath | CPT/HCPCS: 77049; A9585 ==